=== PATIENT | male | born 1935 | race Caucasian/White ===

== ENCOUNTER 2019-05-09 16:29 | Inpatient (IN) ==
--- NOTE | 2019-05-09 17:47 | PROVIDER DOCUMENTATION ---
This chart was entered by Brittney Martinez Scribe, acting as scribe for Leticia Peacock MD. HPI-General Adult - General Source: RN/ (RN) - History of Present Illness -Gen Adult Nature of Presenting Problems: Patient is a 83 year old male who presents to the ED via EMS with weakness and lethargy. RN states EMS stated patient took Trazodone for the first time last night. Patient denies nausea, dizziness, chest pain, shortness of breath and urinary symptoms. Location of Pain/Injury: reports: none Quality of Pain: reports: none Severity: reports: mild Onset/Duration: reports: last night Timing: reports: still present Context/Activities at Onset: reports: light activity Associated Symptoms: reports: weakness, other (AMS - lethargic) Similar Symptoms Previously?: Yes Recently seen or treated by another doctor?: No <Leticia Peacock - Last Filed: 05/09/19 19:23> <Terry Murguia - Last Filed: 05/09/19 20:05> - General Chief Complaint: Weakness Stated Complaint: WEAKNESS Time Seen by Provider: 05/09/19 16:59 Allergies/Adverse Reactions: Patient Allergies Allergy/AdvReac Type Severity Reaction Status Date / Time No Known Allergies Allergy Verified 05/09/19 17:58 Home Medications: Home Medication List Medication Instructions Recorded Confirmed Last Taken Type Aspirin [Adult Aspirin] 81 mg PO DAILY 05/09/19 05/09/19 Unknown History Cholecalciferol (Vitamin D3) 1 cap PO DIRECTED 05/09/19 05/09/19 Unknown History [D3-50] Cyanocobalamin S.l. [Vitamin B-12] 1 tab SUBLINGUAL DAILY 05/09/19 05/09/19 Unknown History Dabigatran Etexilate Mesylate 150 mg PO BID 05/09/19 05/09/19 Unknown History [Pradaxa] Donepezil HCl 1 tab PO QHS 05/09/19 05/09/19 Unknown History Lisinopril 20 mg PO DAILY 05/09/19 05/09/19 Unknown History SIMVAstatin [Zocor] 40 mg PO QHS 05/09/19 05/09/19 Unknown History Review of Systems - Adult - REVIEW OF SYSTEMS - ADULT Constitutional: reports: no symptoms reported. denies: chills, fever, fatique Eyes: reports: no symptoms reported Ears, Nose, Mouth & Throat: reports: no symptoms reported Cardiovascular: reports: no symptoms reported. denies: chest pain, irregular heart rate, palpitations Respiratory: reports: no symptoms reported. denies: cough, shortness of breath, wheezing Gastrointestinal: reports: no symptoms reported. denies: abdominal pain, nausea, vomiting Genitourinary: reports: no symptoms reported. denies: dysuria, hematuria, urinary retention Musculoskeletal: reports: no symptoms reported Integumentary: reports: no symptoms reported Neurological: reports: no symptoms reported Psychiatric: reports: no symptoms reported Endocrine: reports: no symptoms reported Hematologic/Lymphatic: reports: no symptoms reported Allergic/Immunologic: reports: no symptoms reported All Other Systems: Reviewed and Negative <Leticia Peacock - Last Filed: 05/09/19 19:23> Past History - Adult - PAST MEDICAL HISTORY-ADULT Review of Records: reports: Old Records Reviewed, Social history reviewed & non- contributory. Major Childhood Illnesses: reports: denies history Cardiovascular: reports: denies history Respiratory: reports: denies history Gastrointestinal: reports: denies history Obstetrical/Gynecological: reports: denies history Genitourinary: reports: denies history Musculoskeletal: reports: denies history Neurological: reports: denies history Psychiatric: reports: denies history Endocrine/Immune: reports: denies history Other Conditions: reports: denies history - PRIOR SURGERIES/PROCEDURES Surgical/Procedure History: reports: reviewed, not pertinent - IMMUNIZATION STATUS Childhood Immunizations: See Nurse Assessment Flu Vaccine: See Nurse Assessment - FAMILY HISTORY Family History: reviewed, not pertinent - SOCIAL HISTORY Smoking: denies Substance Use: denies <Leticia Peacock - Last Filed: 05/09/19 19:23> Physical Exam-General - PHYSICAL EXAM-ADULT Initial Vital Signs Reviewed: Yes - CONSTITUTIONAL General Appearance: alert, no apparent distress, other (drowsy). negative: obtunded - HEAD, EARS, NOSE, MOUTH & THROAT HENMT: normocephalic/atraumatic, other (dry mucous membranes). negative: angioedema - RESPIRATORY Respiratory: chest non-tender, lungs clear, normal breath sounds. negative: crackles, rhonchi, wheezing - CARDIOVASCULAR Cardiovascular: normal peripheral pulses, regular rate, rhythm. negative: tachycardia - GASTROINTESTINAL (ABDOMEN) Abdominal Exam: normal bowel sounds, non tender, soft. negative: guarding, rebound - MUSCULOSKELETAL Extremity: non-tender, other (2 + pitting edema to bilateral lower extremities). negative: deformity, erythema - SKIN Integumentary: normal color, normal turgor, warm/dry. negative: cyanosis, ecchymosis, jaundice - PSYCHIATRIC Psych/Mental Status: other. negative: anxious, paranoid (oriented to time and person. disoriented to place) <Leticia Peacock - Last Filed: 05/09/19 19:23> Progress - PLAN OF CARE/RESULTS Progress/Plan/Lab Results: Vital Signs - 8 hr 05/09/19 17:05 Temperature 97.9 F Pulse Rate 69 Respiratory Rate 18 Blood Pressure 101/62 O2 Sat by Pulse Oximetry 95 Result Diagrams: 05/09/19 17:46 - CHANGE OF SHIFT REPORT (ED Provider) 1 Report Given and Care Transferred to:: Dr Murguia Time of Transfer: 19:00 Items Pending: Labs, CT/MRI Results, Physician Consult/Arrival <Leticia Peacock - Last Filed: 05/09/19 19:23> - PLAN OF CARE/RESULTS Progress/Plan/Lab Results: Vital Signs - 8 hr 05/09/19 17:05 Temperature 97.9 F Pulse Rate 69 Respiratory Rate 18 Blood Pressure 101/62 O2 Sat by Pulse Oximetry 95 Laboratory Results - last 24 hr 05/09/19 05/09/19 05/09/19 17:46 17:46 18:35 WBC 22.17 H RBC 4.76 Hgb 14.3 Hct 42.3 MCV 88.9 MCH 30.0 MCHC 33.8 RDW Std Deviation 14.3 Plt Count 109 L MPV 11.7 H Immature Gran % (Auto) 0.6 H Neut % (Auto) 86.1 H Lymph % (Auto) 7.8 L [place] % (Auto) 5.2 Eos % (Auto) 0.2 Baso % (Auto) 0.1 Immature Gran # (Auto) 0.14 H Neut # (Auto) 19.07 H Lymph # (Auto) 1.74 [place] # (Auto) 1.16 H Eos # (Auto) 0.04 Baso # (Auto) 0.02 Sodium Potassium Chloride Carbon Dioxide Anion Gap BUN Creatinine Estimated GFR/1.73 m2 BUN/Creatinine Ratio Glucose POC Glucose Calculated Osmolality Calcium Total Bilirubin AST ALT Alkaline Phosphatase Total Protein Albumin Globulin Albumin/Globulin Ratio Plasma Lactate 1.4 Urine Source CATH Urine Color ORANGE Urine Turbidity TURBID Urine pH 5.5 Ur Specific [place] 1.022 Urine Protein 100 A Ur Glucose (Stick) NEGATIVE Ur Ketones (Stick) TRACE A Urine Blood LARGE A Urine Nitrite NEGATIVE Urine Bilirubin SMALL A Urobilinogen Dipstick 3 A Urine Leukocytes LARGE A Urine WBC (Auto) TNTC A Urine RBC (Auto) TNTC A U Epithel Cells (Auto) <10 Urine Bacteria (Auto) 4+ Urine Crystals NONE SEEN Small Round Cells Not Reportable Urine Casts NONE SEEN Urine Yeast-like Cells NONE SEEN 05/09/19 05/09/19 18:50 19:03 WBC RBC Hgb Hct MCV MCH MCHC RDW Std Deviation Plt Count MPV Immature Gran % (Auto) Neut % (Auto) Lymph % (Auto) [place] % (Auto) Eos % (Auto) Baso % (Auto) Immature Gran # (Auto) Neut # (Auto) Lymph # (Auto) [place] # (Auto) Eos # (Auto) Baso # (Auto) Sodium 142 Potassium 3.8 Chloride 104 Carbon Dioxide 24 L Anion Gap 14 BUN 71 H Creatinine 2.6 H Estimated GFR/1.73 m2 24 BUN/Creatinine Ratio 27 Glucose 148 H POC Glucose 137 H Calculated Osmolality 307 Calcium 8.2 L Total Bilirubin 1.67 H AST 139 H ALT 215 H Alkaline Phosphatase 178 H Total Protein 6.1 L Albumin 2.5 L Globulin 3.6 Albumin/Globulin Ratio 0.7 Plasma Lactate Urine Source Urine Color Urine Turbidity Urine pH Ur Specific [place] Urine Protein Ur Glucose (Stick) Ur Ketones (Stick) Urine Blood Urine Nitrite Urine Bilirubin Urobilinogen Dipstick Urine Leukocytes Urine WBC (Auto) Urine RBC (Auto) U Epithel Cells (Auto) Urine Bacteria (Auto) Urine Crystals Small Round Cells Urine Casts Urine Yeast-like Cells Orders Category Date Time Status Saline Loc NOW Care 05/09/19 17:17 Active CHEST-PORTABLE [RAD] Stat Exams 05/09/19 17:[address] HEAD W/O CONTRAST [CT] Stat Exams 05/09/19 17:17 Completed BLOOD CULTURE [BLDCUL] Stat Lab 05/09/19 18:18 Received CBC WITH DIFF [HEME] Stat Lab 05/09/19 17:46 Completed COMPREHENSIVE METABOLIC PANEL [CHEM] Stat Lab 05/09/19 18:50 Completed LACTATE, PLASMA [CHEM] Stat Lab 05/09/19 17:46 Completed UA NIMS W/REFLEX CULT [URINALYSIS] Stat Lab 05/09/19 18:35 Completed URINE CULTURE [RM] Routine Lab 05/09/19 19:24 Received URINE MANUAL MICROSCOPIC [URINALYSIS] Stat Lab 05/09/19 18:35 Completed 0.9% Sodium Chloride Inj [Ns] 1,000 ml Med 05/09/19 19:55 Active IV 999 mls/hr 0.9% Sodium Chloride Inj [Ns] 50 ml Med 05/09/19 19:31 Discontinued .ROUTE As directed Piperacillin/Tazobactam [Zosyn] 4.5 gm Med 05/09/19 20:00 Active 0.9% Sodium Chloride Inj [Ns] 100 ml IV NOW Piperacillin/Tazobactam [Zosyn] 4.5 gm Med 05/09/19 19:30 Ordered 0.9% Sodium Chloride Inj [Ns] 100 ml IV Q6H Pulse Oximetry Stat Oth 05/09/19 17:17 Active Pt signed out to me by Dr. Peacock, pt has UTI and WOLF, given IVF and abx, will admit Result Diagrams: 05/09/19 17:46 05/09/19 18:50 <Terry Murguia - Last Filed: 05/09/19 20:05> Departure <Leticia Peacock - Last Filed: 05/09/19 19:23> - Departure Date of Disposition Decision: 05/09/19 Time of Disposition Decision: 20:04 Certified Medical Emergency: Emergent - Critical Care Note This patient required my direct & personal management of CC.: No <Terry Murguia - Last Filed: 05/09/19 20:05> - Departure DIAGNOSIS: WOLF (acute kidney injury) UTI (urinary tract infection) Qualifiers: Urinary tract infection type: acute cystitis Hematuria presence: without mehran turia Qualified Code(s): N30.00 - Acute cystitis without hematuria Disposition: ADMITTED INPATIENT 09 Condition: Stable Referrals and Follow-Ups: Cristian Crabtree MD [Primary Care Provider] - Attestation - Physician/ KARLEE Attestation The physician spent face to face time with patient:: Yes Advanced Practice Provider documentation review:: Supervising physician onsite and consulted in the evaluation and care of this patient. The physician did have a face to face encounter with the patient. <Leticia Peacock - Last Filed: 05/09/19 19:23> - Physician/ KARLEE Attestation Patient care was provided by Advanced Practice Provider:: No <Terry Murguia - Last Filed: 05/09/19 20:05> This chart was documented by the indicated scribe, (Brittney Martinez Scribe) and accurately reflects the services I performed and decisions made by me, Leticia Peacock MD, as attested by the provider's signature.
[2019-05-09 18:09] LABS: BASO# 0.02 X1000 (0.0-0.2); BASO% 0.1 % (0.0-0.8); EOS# 0.04 X1000 (0.0-0.7); EOS% 0.2 % (0.0-10.0); HEMATOCRIT 42.3 % (42.0-52.0); HEMOGLOBIN 14.3 g/dL (14.0-18.0); IMM GRAN# 0.14 X1000 (0.0-0.04); IMM GRAN% 0.6 % (0.0-0.5); LYMPH# 1.74 X1000 (1.2-3.4); LYMPH% 7.8 % (20.5-51.1); MCHC 33.8 g/dL (33-37); MCV 88.9 FL (81-99); MONO# 1.16 X1000 (0.11-0.59); MONO% 5.2 % (1.7-9.3); MPV 11.7 FL (7.4-10.4); NEUT# 19.07 X1000 (1.4-6.5); NEUT% 86.1 % (42.2-75.2); PLT 109 X1000 (130-400); RBC 4.76 XMIL (4.7-6.1); RDW 14.3 % (11.5-14.5); WBC 22.17 X1000 (4.8-10.8)
--- NOTE | 2019-05-09 18:29 | Diag Imaging Result Doc PS360 ---
CT HEAD W/O CONTRAST - 05/09/2019 INDICATION: AMS COMPARISON: 04/15/2019 FINDINGS: Stable mild cerebral atrophy. Stable mild periventricular white matter chronic microvascular disease. No intracranial mass or hemorrhage. The skull is intact. The sinuses are clear. IMPRESSION: No acute process. This exam was performed using automated exposure control, adjustment of mA or kV according to patient size, and/or use of iterative reconstruction technique Electronically signed by Johnny Mejia 05/09/2019 6:27 PM
--- NOTE | 2019-05-09 18:31 | Diag Imaging Result Doc PS360 ---
CHEST-PORTABLE - 05/09/2019 INDICATION: AMS COMPARISON: None FINDINGS: There are sternotomy wires and valve replacement changes. There is mild cardiomegaly. There is mild central pulmonary vascular congestion. No definite infiltrates or edema. No pleural effusion. IMPRESSION: Cardiomegaly and pulmonary vascular congestion. Electronically signed by Johnny Mejia 05/09/2019 6:29 PM
[2019-05-09 18:46] LABS: URINE SOURCE CATH
[2019-05-09 19:02] LABS: BILIRUBIN URINE SMALL (NEGATIVE); BLOOD URINE LARGE (NEGATIVE); COLOR ORANGE; GLUCOSE URINE NEGATIVE (NEGATIVE); KETONE URINE TRACE mg/dL (NEGATIVE); LEUKOCYTES URINE LARGE (NEGATIVE); NITRITE URINE NEGATIVE (NEGATIVE); PH URINE 5.5; PROTEIN URINE 100 mg/dL (NEGATIVE); SP GRAVITY URINE 1.022; TURBIDITY URINE TURBID (CLEAR); UROBILINOGEN URINE 3 mg/dL (NORMAL)
[2019-05-09 19:07] LABS: UR EPITHELIAL CELLS <10 /HPF (<10); URINE BACTERIA 4+ /HPF; URINE RBC TNTC /HPF (<10); URINE WBC TNTC /HPF (<10)
--- NOTE | 2019-05-09 19:21 | ED EKG INTERP ---
This chart was entered by Criselda Bateman Scribe, acting as scribe for Leticia Peacock MD. EKG Interpretation - EKG Time of EKG reading by physician:: 18:16 EKG Read and Signed by:: Leticia Peacock EKG Interpretation (*Must complete 3 of following elements*): Abnormal (Atrial fibrillation, Cannot rule out Inferior infarct, age undetermined. Anterior infarct, age undetermined. Abnormal ECG ( no STEMI )) Rate: 65 Rhythm: Atrial Fibrillation [place]: normal QRS: normal SD Interval: normal Attestation - Physician/ KARLEE Attestation Patient care was provided by Advanced Practice Provider:: No The physician spent face to face time with patient:: Yes Advanced Practice Provider documentation review:: Supervising physician onsite and consulted in the evaluation and care of this patient. The physician did have a face to face encounter with the patient. This chart was documented by the indicated scribe, (Criselda Bateman Scribe) and accurately reflects the services I performed and decisions made by , Leticia Peacock MD, as attested by the provider's signature.
[2019-05-09 19:23] LABS: URINE CASTS NONE SEEN; URINE CRYSTALS NONE SEEN; URINE YEAST NONE SEEN
[2019-05-09] MEDS ORDERED: ZOSYN 4.5 GM in NS 100 ML IV SCH (19:30)
[2019-05-09] MEDS ORDERED: NS 50 ML ONE (19:31)
[2019-05-09 19:37] LABS: ALB/GLOB RATIO 0.7; ALBUMIN 2.5 g/dL (3.5-5.0); CALCIUM 8.2 mg/dL (8.8-10.2); CREATININE 2.6 mg/dL (0.7-1.2); POTASSIUM 3.8 mmol/L (3.5-5.1); TOTAL BILIRUBIN 1.67 mg/dL (0.20-1.00); TOTAL PROTEIN 6.1 g/dL (6.3-8.3)
[2019-05-09] MEDS ORDERED: NS 1,000 ML IV ONE (19:55)
[2019-05-09] MEDS ORDERED: ZOSYN 4.5 GM in NS 100 ML IV ONE (20:00)
[2019-05-09] MEDS ORDERED: ZOFRAN IV PRN ×2 (21:27→22:00)
[2019-05-09] MEDS ORDERED: ARICEPT PO SCH (21:27)
[2019-05-09] MEDS ORDERED: DABIGATRAN ETEXILATE MESYLATE 150 MG PO SCH (21:27)
[2019-05-09] MEDS ORDERED: NS 1,000 ML ONE (21:37)
[2019-05-09] MEDS: ARICEPT PO SCH (22:00)
[2019-05-09] MEDS ORDERED: DABIGATRAN ETEXILATE MESYLATE 75 MG PO SCH (22:00)
[2019-05-09 22:32] LABS: INR 2.1; PROTIME 24.1 Seconds (11.0-16.0)
[2019-05-09 22:33] LABS: PTT 50.8 Seconds (22.3-41.8)
[2019-05-09] MEDS: NS 1,000 ML IV SCH (22:43)
--- NOTE | 2019-05-10 01:16 | HISTORY AND PHYSICAL ---
PRIMARY CARE PROVIDER: Dr. Cristian Crabtree at [facility]. DATE AND TIME: 05/09/2019 at 2100. CHIEF COMPLAINT: Weakness and altered mental status. The patient was brought to the ER this evening, 05/09/2019 at 1629 hours, with complaints of weakness and altered mental status. According to the ER report, the patient has been recently admitted and discharged from [facility], for which he was treated for a urinary tract infection. Also, it was reported that the patient took a trazodone last night for the 1st time as well, this was thought maybe to have been contributing to his lethargy and altered mental status. The patient is only alert and oriented to person. Unfortunately, due to his mentation, he is not able to provide really any assistance with history of present illness, past medical history, or review of systems. I did conduct a review of systems with the patient, though he either said "no" or "I don't know" to every question. I am not sure how reliable his response is at this time. Upon evaluation in the ER, head CT was performed which showed no acute intracranial abnormality. A chest x-ray was performed, which did show cardiomegaly and pulmonary vascular congestion. He does have leukocytosis with a white blood cell count of 22,170. It is unknown, at this time, whether or not he has been having fever prior to arrival. It does appear that he has an acute kidney injury with a BUN of 71, a creatinine of 2.6, and a GFR of 24. He also has elevated liver function tests, and urinalysis which was obtained via catheter, did show a urinary tract infection. While in the ER, though his mean arterial pressures are staying above 60, he does have some mild borderline hypotension noted. He did receive a 1 L normal saline bolus and has been started with antibiotic treatment of Zosyn. He will be admitted to the ICU for further treatment and evaluation. REVIEW OF SYSTEMS: Though a 14-point review of systems was conducted with the patient, the patient is altered. He is only alert and oriented to person only. He did either answer "no" or "I don't know" to my questions. All were negative except for positive findings mentioned in the above HPI. Given his current mentation I am not sure how reliable his response to review of systems is at this time. PAST MEDICAL HISTORY: This was obtained via his medical records from [facility]. 1. History of atrial fibrillation on anticoagulation with Pradaxa. 2. Coronary artery disease. 3. Vascular dementia. 4. Hypertension. 5. Chronic kidney disease. 6. TIA. 7. Mitral and aortic valve insufficiency. 8. Abdominal aortic aneurysm. 9. History of malignant neoplasm of the prostate. 10. Carotid artery disease. 11. History of intracardiac thrombosis. 12. History of aneurysm of the heart. PAST SURGICAL HISTORY: 1. Reported aortic valve replacement. 2. Elbow surgery. SOCIAL HISTORY: The patient is a former smoker, though other than this, we are not able to obtain any other information at this time due to the patient's current mentation and no family at bedside. FAMILY HISTORY: Were unable to obtain past family medical history due to the patient's current condition and mentation. ALLERGIES: Patient has no known allergies. HOME MEDICATIONS: 1. Aspirin 81 mg tablet p.o. daily. 2. Donepezil 10 mg, 1 tablet p.o. at bedtime. 3. Lisinopril 10 mg, 1 tablet p.o. daily. 4. Pradaxa 150 mg, 1 capsule p.o. b.i.d. 5. Simvastatin 40 mg tablet, 1 tablet p.o. at bedtime. 6. Vitamin D3, 50,000 units, 1 capsule once weekly as directed. 7. Vitamin B12, 2500 mcg tablet sublingual daily. 8. Trazodone 50 mg tablet by mouth once daily at bedtime. DIAGNOSTIC STUDIES: White blood cell count is 22,170, hemoglobin 14.3, hematocrit 42.3, platelet count is 109,000. PTT 24.1, INR 2.1, PTT is 50.8. Sodium 142, potassium 3.8, chloride 104, serum bicarbonate is 24, BUN 71, creatinine 2.6 with a GFR 24. Glucose 148, calcium 8.2, magnesium 2.3, total bilirubin is 1.67, AST 139, ALT 215, alkaline phosphatase is 178. CK is 1164. Plasma lactate is 1.4. Urinalysis was obtained via catheter, was positive for protein, trace ketones, large blood, small bilirubin, large leukocytes, too numerous to count white blood cells and red blood cells, and 4+ bacteria. CT of the head without contrast showed no acute process. This was per Radiology. Chest x-ray showed cardiomegaly and pulmonary vascular congestion, though there is no definite infiltrates or edema. There is no pleural effusion. There were sternotomy wires and valve replacement changes noted as well. This is per Radiology. EKG showed atrial fibrillation at a rate of 65 with a QTc of 445 msec. PHYSICAL EXAMINATION: VITAL SIGNS: Heart rate 64, respirations 18, blood pressure is 115/64, oxygen saturation is 95% per nasal cannula at 2 L. GENERAL: Mr. Salguero is a pleasant 83-year-old male. He is only alert and oriented to person, at this time. Though he is resting in the ER stretcher with his eyes closed, he does open his eyes to verbal calling of his name. He is able to follow simple commands. HEENT: Head is atraumatic, normocephalic. Pupils are equal, round, reactive to light, were 3 mm bilaterally and brisk. Oral mucosa slightly dry. Oropharynx is clear. NECK: Supple. Trachea midline. CARDIOVASCULAR: Patient has a systolic murmur noted, though no other rubs or gallops appreciated. He does have an irregularly irregular rhythm. He is showing atrial fibrillation on bedside monitor. Though, the rate is controlled in the 60s at this time. PULMONARY: The patient has symmetrical chest expansion bilaterally. Lung sounds are clear to auscultation in bilateral full adorno. ABDOMEN: Soft. Does not appear to be distended, though The patient does have a protuberant abdomen noted. He is nontender upon palpation. Bowel sounds are present in all 4 quadrants, were normoactive. EXTREMITIES: No cyanosis noted. The patient does have some trace edema noted in bilateral lower extremities from mid calf down. He is able to move all extremities, though does have generalized weakness noted. Radial pulses were 3+ bilaterally. Pedal pulses were 2+ bilaterally. INTEGUMENTARY: The patient's skin is pink, warm, and dry. NEUROLOGICAL: Patient is alert and oriented to person only. He is able to follow some simple commands. He is able to move all extremities, though does have generalized weakness noted. At this time, due to his current condition and mentation, his neurological exam is limited. ASSESSMENT AND PLAN: 1. Encephalopathy. This could be multifactorial. The patient did receive a first-time dose of trazodone last night, though this may be related to the patient's urinary tract infection. According to the patient's ER notes, it does look like that his reported baseline mentation is being alert and oriented x2. We will continue to monitor this closely. 2. Urinary tract infection. We have placed the patient on antibiotic coverage of Zosyn. This has been renally dosed. We are awaiting urine culture results. We will continue to follow. 3. Mild hypotension. May be secondary to volume depletion. The patient did receive a 1 L normal saline bolus and does have normal saline infusion at 150 mL/h. We will continue to monitor this closely and implement pressors if necessary. 4. Acute kidney injury. The patient, from what I understand, does have underlying chronic kidney disease, though the patient on April 28, did have a creatinine of 0.9, which is now 2.6. This could be multifactorial related to his urinary tract infections, some mild hypotension, volume depletion, and he does take lisinopril as well. We will avoid nephrotoxic medications, renally dose medicines as necessary, providing some IV hydration. We will continue to follow. 5. Transaminitis. This could be multifactorial as well, it could be related to infection as well as some mild hypotension. We will continue to monitor this closely. 6. History of atrial fibrillation. The patient's rate is controlled in the 60s at this time, though he has had a couple dips into the 50s. Looking at his medication list, he does not take any regularly prescribed medicines for heart rate control. He will be on continuous cardiac telemetry. We will monitor his heart rate. 7. Deep venous thrombosis prophylaxis. We will place some sequential compression devises. The patient normally does take Pradaxa 150 mg p.o. b.i.d. for his history of atrial fibrillation, though at this time, I have held this due to his INR was elevated. We will repeat this in the morning to see if we are able to restart this medication, but if it does, it will likely need to be renally dosed based off his creatinine clearance which, at this time, would be 75 mg p.o. b.i.d. He has been placed in ICU for close monitoring. We will do strict intake and output. We have implemented aspiration precautions, incentive spirometry. He will be NPO, at this time, except for medications and sips of water, as long as the patient is arousable and can sit up. We will repeat a CBC, CMP, lactate, PT, INR, and CK in the morning. Further orders and recommendations pending hospital course, diagnostic studies, and physician evaluation. Dictated by PAULO Jenkins for Baron Lees MD Agree with the above. the following is my own face to face assessment. Patient sent [facility] from senior living for somnolence. started on trazodone last night. in the ED, found to have sepsis, likely related to UTI and WOLF, likely dehydration related. he was arousable with difficulty but markedly somnolent at the time of my exam. when he did arouse his speech was clear and largely coherent, but he wouldn't stay awake long enough to give any useful history. treating empirically with vanc and zosyn but will likely be able to drop the vanc if his repeat cxr is still clear. will get echo because of 4/6 LUSB murmur noted on exam. lungs CTAB. abdomen s/nt/nd. preliminary blood culture is gram negative rods. urine culture pending. [facility]
[2019-05-10] MEDS ORDERED: OFIRMEV 1000 MG/ISOTONIC SOLN 1,000 MG/100 ML BOTTLE IV ONE (01:21)
[2019-05-10] MEDS ORDERED: TYLENOL PR PRN (01:32)
[2019-05-10] MEDS ORDERED: TYLENOL ONE (01:37)
[2019-05-10] MEDS ORDERED: TYLENOL PR ONE (02:39)
[2019-05-10] MEDS ORDERED: MOTRIN LIQUID PO ONE (02:39)
[2019-05-10] MEDS ORDERED: VANCOMYCIN IV PER PHARMACY MISC SCH (03:00)
[2019-05-10] MEDS ORDERED: VANCOMYCIN 1 GM/NS 1 GM/250 ML IVPB IV ONE (04:00)
[2019-05-10] MEDS: ZOSYN 2.25 GM in NS 50 ML IV SCH ×4 (05:02→20:54)
[2019-05-10 05:49] LABS: HEMOGLOBIN A1C 5.2 % (4.8-6.0)
[2019-05-10] MEDS ORDERED: VANCOMYCIN 2,500 MG in NS 500 ML IV ONE (06:00)
[2019-05-10 06:01] LABS: BASO# 0.01 X1000 (0.0-0.2); BASO% 0.1 % (0.0-0.8); HEMATOCRIT 39.7 % (42.0-52.0); HEMOGLOBIN 13.3 g/dL (14.0-18.0); IMM GRAN# 0.28 X1000 (0.0-0.04); IMM GRAN% 1.9 % (0.0-0.5); LYMPH# 0.85 X1000 (1.2-3.4); LYMPH% 5.6 % (20.5-51.1); MCH 29.8 PG (27-31); MCHC 33.5 g/dL (33-37); MCV 88.8 FL (81-99); MONO# 0.97 X1000 (0.11-0.59); MONO% 6.4 % (1.7-9.3); MPV 11.4 FL (7.4-10.4); NEUT# 13.01 X1000 (1.4-6.5); PLT 99 X1000 (130-400); RBC 4.47 XMIL (4.7-6.1); RDW 14.3 % (11.5-14.5); WBC 15.12 X1000 (4.8-10.8)
[2019-05-10 06:02] LABS: ALB/GLOB RATIO 0.6; ALBUMIN 2.1 g/dL (3.5-5.0); CALCIUM 7.7 mg/dL (8.8-10.2); CREATININE 2.1 mg/dL (0.7-1.2); POTASSIUM 2.9 mmol/L (3.5-5.1); TOTAL BILIRUBIN 1.51 mg/dL (0.20-1.00); TOTAL PROTEIN 5.4 g/dL (6.3-8.3)
[2019-05-10] MEDS: NS 1,000 ML IV SCH ×3 (06:07→20:03)
[2019-05-10 06:51] LABS: BANDS 2 % (0-1); LYMPHS 4 % (21-51); MONO 6 % (1-9); SEGS 84 % (42-75)
[2019-05-10 07:13] LABS: INR 1.96; PROTIME 22.8 Seconds (11.0-16.0)
--- NOTE | 2019-05-10 07:24 | Diag Imaging Result Doc PS360 ---
CHEST-PORTABLE - 05/10/2019 INDICATION: dyspnea COMPARISON: 05/09/2019 FINDINGS: Stable cardiomegaly and significant pulmonary vascular congestion. No infiltrates or definite edema. IMPRESSION: No change from prior. Electronically signed by Johnny Mejia 05/10/2019 7:22 AM
--- NOTE | 2019-05-10 08:52 | EKG Report ---
Test Performed on : 05/09/2019 6:16:35 PM Test Reason : ED. No order in [place] Blood Pressure : / mmHG Vent. Rate : 065 BPM Atrial Rate : 059 BPM P-R Int : 000 ms QRS Dur : 094 ms QT Int : 428 ms P-R-T Axes : 000 051 066 degrees QTc Int : 445 ms Atrial fibrillation. Cannot rule out Inferior infarct , age undetermined Anterior infarct , age undetermined Abnormal ECG No previous ECGs available Unconfirmed Result
[2019-05-10] MEDS: ASPIRIN EC PO SCH (09:15)
[2019-05-10] MEDS ORDERED: CALMOSEPTINE OINTMENT TOP PRN (09:33)
[2019-05-10] MEDS ORDERED: LEVOPHED 8 MG in D5 1/2 NS 250 ML IV SCH (10:00)
--- NOTE | 2019-05-10 10:28 | PROGRESS NOTE ---
DATE: 05/10/2019 SUBJECTIVE: Mr. Salguero got admitted yesterday from the ER. Per the ER report, Mr. Salguero did complain of some weakness and lethargy. He was brought in by EMS, and EMS stated that he has taken the first dose of trazodone, which appears to have been his first time taking that, and since then, he just became completely altered and confused. Upon presenting to the emergency department, he was found to be hypotensive with a blood pressure of 97/58, but that dropped to 81/52 sometimes during the ER stay. He also had a temperature of 102.9 degrees. At one point, it was 103.5, and his pulse also went up at some point. Mr. Salguero was subsequently admitted to the critical care unit for sepsis. This morning, he refers to be doing okay. He is still fairly confused. He does not know how he came to the hospital. He does not know who made a call to EMS. He still does not know where he is, but he said he was feeling okay. His blood pressures have been trending a little low this morning with a systolic blood pressures below 90. OBJECTIVE: Current Vital Signs: Blood pressure is 100/56, pulse is 57, respirations 17, temperature is down to 98.2, the patient is saturating 100% on room air. General: Mr. Salguero is an 83-year-old, elderly, gentleman. He is in bed. He does not seem to be in any distress. HEENT: Mucosa is pink and moist. Anicteric. Acyanotic. Neck: Supple. No JVD. Chest: Air entry is bilaterally reduced. There are no crepitations, no rhonchi. Cardiovascular: Regular rate and rhythm. There is a pronounced P2 sound and a 2/6 holosystolic murmur in the left pulmonic area. There is also an old sternotomy scar noted. GI: Abdomen is soft, nontender. Bowel sounds are present. Inguinal region seems to be unremarkable. : There is no Penny catheter at this point. Extremities: No pedal edema. DIGITAL ART DIRECTOR: The patient is awake, alert. He is oriented to person, but disoriented to place and time. He is able to move all extremities upon command. LABORATORY DATA: WBC is down to 15.15, hemoglobin is 13.3, platelet count is 99,000. The patient has 2% of bands on the peripheral smear. He has 84% of neutrophils. AST and ALT are also elevated. Total bilirubin is 1.53. So far, blood culture is growing gram-negative barbie, 2/. ASSESSMENT: 1. Septic shock on presentation. The patient did not need any pressors initially. He seems to have responded well with boluses of IV fluids. He is still on intravenous antibiotics. The blood culture is growing gram-negative rods, so I have discontinue the vancomycin, and will continue with the Zosyn at renal dose. May need pressors later BP are marginal now. 2. Altered mental status on presentation. The CT scan was unremarkable. We think this is all related to infectious encephalopathy versus drug induced. Will continue addressing the underlying issues. 3. Gram-negative barbie bacteremia, 2/2. Presumably, this is coming from the urine. Urinalysis was quite pathological. Mr. Salguero himself is not giving a very consistent history. Will continue the current antimicrobial coverage until we get any further history from him. 4. Acute kidney injury. 5. Transaminitis, presumably from ischemic liver. 6. History of atrial fibrillation. Currently rate controlled. 7. Suspected urinary tract infection as the source of the sepsis picture. 8. History of coronary artery disease, status post coronary artery bypass graft. In general, Mr. Salguero continues to be remarkably sick. Blood pressures are now trending low. We are going to put him on pressors. Will continue with the antimicrobial coverage. I have discontinued the vancomycin since we know the pathogen is a gram-negative barbie. The patient's plasma lactate on admission was 1.4; repeat this morning is 1.5. CRITICAL TIME SPENT: 45 minutes. cc: Selwyn Li MD [facility]
[2019-05-10 12:05] LABS: URINE SOURCE CATH
[2019-05-10 12:15] LABS: BILIRUBIN URINE NEGATIVE (NEGATIVE); BLOOD URINE LARGE (NEGATIVE); COLOR ORANGE; GLUCOSE URINE NEGATIVE (NEGATIVE); KETONE URINE NEGATIVE (NEGATIVE); LEUKOCYTES URINE LARGE (NEGATIVE); NITRITE URINE NEGATIVE (NEGATIVE); PROTEIN URINE 70 mg/dL (NEGATIVE); SP GRAVITY URINE 1.022; TURBIDITY URINE TURBID (CLEAR); UROBILINOGEN URINE NORMAL (NORMAL)
[2019-05-10 12:16] LABS: UR EPITHELIAL CELLS <10 /HPF (<10); URINE BACTERIA NEGATIVE /HPF; URINE RBC TNTC /HPF (<10); URINE WBC TNTC /HPF (<10)
[2019-05-10 12:20] LABS: URINE CASTS NONE SEEN; URINE CRYSTALS NONE SEEN; URINE SMALL ROUND CELLS RENAL PRESENT; URINE YEAST NONE SEEN
--- NOTE | 2019-05-10 18:03 | ECHO REPORT ---
ORDER DATE: 05/10/2019 INTERPRETING PHYSICIAN: Dr. Block CLINICAL INDICATIONS: Patient with atrial fibrillation, status post aortic valve replacement. COMMENT: The study was technically difficult. The patient is obese and Optison was added to visualize the endocardium. M-MODE MEASUREMENTS: Left ventricle end diastole: 4.9 cm. Left ventricle end systole: 3.2 cm. Posterior wall: 1.0 cm. Interventricular septum: 1.0 cm. Left atrium: 4.7 cm. Aortic diameter: 3.2 cm. SUMMARY OF 2-DIMENSIONAL IMAGIN. The left ventricular function is generally preserved. Ejection fraction is probably in the order of 55%. There is some abnormality of the interventricular septum, probably related to post surgical changes. 2. Right ventricle is mildly enlarged. 3. There is borderline concentric LVH. 4. The aortic valve is a tissue prosthetic valve. It opens normally. Maximum gradient across the valve is 21 mmHg. Mean gradient is 13 mmHg. That would be consistent with normal function of the valve. There is mild degree of aortic regurgitation. 5. The mitral valve shows some calcification of the annulus. Color flow mapping shows mild degree of regurgitation. 6. Pulsed wave Doppler of mitral inflow shows a single filling wave. 7. The patient is in atrial fibrillation. Diastolic function cannot be evaluated in this case. 8. The tricuspid valve shows mild degree of regurgitation. 9. Pulmonary pressure is estimated at 45 mmHg. The pulmonic valve is unremarkable. 10.The left atrium is significantly enlarged. The right atrium is also significantly enlarged. 11.There is no pericardial effusion, mass, and no thrombus. CONCLUSIONS: In summary, this study shows: 1. Generally well preserved left ventricular systolic function. Ejection fraction of 55%. Optison was added to visualize endocardium. 2. Significantly enlarged left atrium. 3. Enlargement of the right-sided chamber. 4. Mild degree of mitral, tricuspid, and pulmonic regurgitation. 5. Normally functioning bioprosthetic aortic valve. Mild degree of regurgitation was noted. cc: Dick Block MD
[2019-05-10] MEDS: ARICEPT PO SCH (20:54)
--- NOTE | 2019-05-10 21:10 | Diag Imaging Result Doc PS360 ---
US RENAL 2 (RETROPER) COMPLETE - 05/10/2019 INDICATION: krystal/arf TECHNIQUE: COMPARISON: None FINDINGS: The kidneys and urinary bladder are normal. No hydronephrosis or mass. The right kidney measures 14.3 x 7.2 x 7.4 cm. The left kidney measures 13.7 x 5.6 x 7.1 cm. IMPRESSION: Negative exam. Electronically signed by Johnny Mejia 05/10/2019 9:08 PM
[2019-05-11] MEDS: NS 1,000 ML IV SCH ×2 (02:11→03:44)
[2019-05-11] MEDS: ZOSYN 2.25 GM in NS 50 ML IV SCH ×2 (03:43→08:30)
[2019-05-11 06:29] LABS: BASO# 0.01 X1000 (0.0-0.2); BASO% 0.1 % (0.0-0.8); EOS# 0.01 X1000 (0.0-0.7); EOS% 0.1 % (0.0-10.0); HEMATOCRIT 43.6 % (42.0-52.0); HEMOGLOBIN 14.4 g/dL (14.0-18.0); IMM GRAN# 0.05 X1000 (0.0-0.04); IMM GRAN% 0.4 % (0.0-0.5); LYMPH# 1.46 X1000 (1.2-3.4); LYMPH% 10.4 % (20.5-51.1); MCH 29.7 PG (27-31); MCV 89.9 FL (81-99); MONO# 0.98 X1000 (0.11-0.59); MPV 11.9 FL (7.4-10.4); NEUT# 11.53 X1000 (1.4-6.5); PLT 87 X1000 (130-400); RBC 4.85 XMIL (4.7-6.1); RDW 14.6 % (11.5-14.5); WBC 14.04 X1000 (4.8-10.8)
[2019-05-11 06:36] LABS: ALBUMIN 1.9 g/dL (3.5-5.0); CALCIUM 7.4 mg/dL (8.8-10.2); CREATININE 1.6 mg/dL (0.7-1.2); PHOSPHORUS 2.9 mg/dL (2.7-4.5)
[2019-05-11] MEDS: ASPIRIN EC PO SCH (08:17)
[2019-05-11] MEDS: D5 1/2 NS 1,000 ML IV SCH ×2 (09:00→23:45)
[2019-05-11] MEDS: INVANZ 1 GM/NS 1 GM/50 ML IVPB IV SCH (09:55)
--- NOTE | 2019-05-11 12:18 | PROGRESS NOTE ---
DATE: 05/11/2019 SUBJECTIVE: This morning, Mr. Salguero refers to be feeling a lot better. He is more conversational today than yesterday. However, he remains fairly confused. OBJECTIVE: Vital Signs: Blood pressure is 158/94, pulse of 65, respirations are 17, temperature is 97.8 degrees. General Examination: Mr. Salguero is an 83-year-old, elderly, male. He is in bed. No distress. HEENT: Mucosa is pink and moist. Anicteric. Acyanotic. Neck: Supple. Chest: Clear to auscultation. No crepitations. No rhonchi. Cardiovascular: Regular rate and rhythm. There is a pronounced P2 and a 2/6 holosystolic murmur in the left base. There is an old sternotomy scar on the anterior chest wall. GI: Abdomen is soft, nontender. Bowel sounds present. Extremities: No pedal edema. EXTRUSION PRESS ADJUSTER: The patient is awake, alert, conversational, oriented to person but disoriented to place and time. The patient follows basic commands, however. Laboratory Data: WBC is down to 14.04, hemoglobin is 14.4, platelet count of 87,000. Chemistry is also reviewed. Sodium is 146, chloride is 114, creatinine is down to 1.6. The patient's microbiology data shows blood culture continues to be gram-negative barbie. The urine culture has grown Klebsiella pneumoniae which is ESBL. We suspect this is the same pathogen in the blood, so we have changed the antibiotics to carbapenem. ASSESSMENT: 1. Altered mental status secondary to infectious encephalopathy with possibly baseline dementia. 2. Septic shock on presentation. The patient responded well to only fluid resuscitation. No pressor was needed. 3. Gram-negative barbie bacteremia. 4. Klebsiella extended-spectrum B-lactamase urinary tract infection. Renal ultrasound was unremarkable for any obstructive uropathy. We have changed the antimicrobial coverage to ertapenem. 5. Acute kidney injury. Creatinine continues to be improving. The patient has adequate urine output. 6. Transaminitis, presumably from shock liver. 7. History of atrial fibrillation, currently rate controlled. 8. History of coronary artery disease, status post coronary artery bypass graft. Patient is currently asymptomatic. 9. Mild rhabdomyolysis, improving with fluids. 10. Mild electrolyte abnormality (hypernatremia and hyperchloremia). We have changed the current intravenous fluids to D5 half-normal saline. PLAN: In general, I think Mr. Salguero is doing well. I am still waiting to talk to a family member. I have not seen any at the bedside. Mr. Salguero seems to be more alert today. However, he remains pleasantly confused. At one point, he thought he was in [place] and that he lived with his parents. We have switched his antibiotics to carbapenem because of the ESBL and we have also made changes to his IV fluids. This morning, his blood pressures are slightly elevated so we are going to start him back on antihypertensive medications. Patient was on lisinopril. We will withhold that and put him on amlodipine. cc: Selwyn Li MD
[2019-05-11] MEDS: ARICEPT PO SCH (20:28)
[2019-05-12 05:18] LABS: BASO# 0.05 X1000 (0.0-0.2); BASO% 0.5 % (0.0-0.8); EOS# 0.02 X1000 (0.0-0.7); EOS% 0.2 % (0.0-10.0); HEMATOCRIT 43.3 % (42.0-52.0); HEMOGLOBIN 14.4 g/dL (14.0-18.0); IMM GRAN# 0.04 X1000 (0.0-0.04); IMM GRAN% 0.4 % (0.0-0.5); LYMPH# 1.45 X1000 (1.2-3.4); LYMPH% 13.1 % (20.5-51.1); MCH 30.3 PG (27-31); MCHC 33.3 g/dL (33-37); MCV 91.2 FL (81-99); MONO# 0.96 X1000 (0.11-0.59); MONO% 8.7 % (1.7-9.3); MPV 12.2 FL (7.4-10.4); NEUT# 8.54 X1000 (1.4-6.5); NEUT% 77.1 % (42.2-75.2); PLT 82 X1000 (130-400); RBC 4.75 XMIL (4.7-6.1); RDW 14.9 % (11.5-14.5); WBC 11.06 X1000 (4.8-10.8)
[2019-05-12] MEDS ORDERED: VANCOMYCIN 2,000 MG in NS 500 ML IV SCH (06:00)
[2019-05-12 06:02] LABS: ALB/GLOB RATIO 0.5; ALBUMIN 1.9 g/dL (3.5-5.0); CALCIUM 7.8 mg/dL (8.8-10.2); CREATININE 1.2 mg/dL (0.7-1.2); POTASSIUM 3.8 mmol/L (3.5-5.1); TOTAL BILIRUBIN 1.16 mg/dL (0.20-1.00); TOTAL PROTEIN 5.4 g/dL (6.3-8.3)
[2019-05-12] MEDS: D5W 1,000 ML IV SCH ×2 (08:56→17:16)
[2019-05-12] MEDS: NORVASC PO SCH ×2 (08:57→20:33)
[2019-05-12] MEDS: ASPIRIN EC PO SCH (08:57)
[2019-05-12] MEDS: BLISTEX MEDICATED BERRY LIP BALM TOP PRN ×2 (08:57→13:31)
[2019-05-12] MEDS: INVANZ 1 GM/NS 1 GM/50 ML IVPB IV SCH (11:06)
--- NOTE | 2019-05-12 11:18 | PROGRESS NOTE ---
DATE: 05/12/2019 SUBJECTIVE: This morning, Mr. Salguero refers to be doing fairly okay. No new complaints. OBJECTIVE: Vital Signs: Blood pressure is 157/89, pulse of 57, respirations 18, temperature 98.4 degrees. General: Mr. Salguero is an 83-year-old, elderly, male. He is in bed, not seemingly distressed. HEENT: Mucosa is pink and moist. Anicteric. Acyanotic. Neck: Supple. Chest: Good air entry bilaterally. There were no crepitations, no rhonchi. Cardiovascular: Regular rate and rhythm. There is a pronounced P2 and a 2/6 holosystolic murmur in the left base. There is an old sternotomy scar on the anterior chest wall. GI: Abdomen is soft. Bowel sounds present. Extremities: No pedal edema. HAND PICKER: The patient is awake, alert, follows basic commands, but he continues to be very disoriented to place and time. LABORATORY DATA: WBC is down to 11.06, hemoglobin is 14.4, platelet count 82,000. Chemistry is also reviewed. Sodium is up to 150, but creatinine has normalized. ALT and AST are all trending down. Creatine kinase has also normalized. ASSESSMENT: 1. Altered mental status on presentation secondary to infectious encephalopathy with baseline dementia. 2. Septic shock on presentation. The patient responded well to fluid resuscitation. No pressor needed. 3. Klebsiella pneumoniae extended spectrum beta-lactamase bacteremia originating from a urinary tract infection. The patient has been started on ertapenem. Infectious Disease has also been consulted. 4. Acute kidney injury, resolved. 5. Transaminitis, presumably from shock liver, improved. 6. History of atrial fibrillation, currently rate controlled. 7. Coronary artery disease, status post coronary artery bypass graft. The patient is currently asymptomatic. 8. Mild rhabdomyolysis, improved. 9. Electrolyte abnormality with hypernatremia. Fluids have been changed. 10. Advanced dementia. In general, today Mr. Salguero is fairly stable. We have consulted Infectious Disease because of the extended spectrum beta-lactamase in the blood and in the urine. He is currently on ertapenem. We will repeat a blood culture tomorrow, and follow it accordingly to have a negative culture. Mr. Salguero also has hypernatremia, and we have changed his current fluids to just D5. Will repeat his labs in the morning. Will get him transferred to the medical floor. Will get Physical Therapy to start working with him. I spoke with the daughter yesterday, who told me that Mr. Salguero has a remarkable advanced dementia, and because of that, he is in [facility] long-term since the and the family can no longer take care of him at home. cc: Selwyn Li MD
--- NOTE | 2019-05-12 12:52 | INFECTIOUS DISEASE CONSULT REP ---
DATE: 05/12/2019 CONCLUSION: The patient has an extended spectrum beta lactamase producing Klebsiella urinary tract infection and bacteremia. The patient also has oral candidiasis. RECOMMENDATIONS: I suggest treating the patient for 6 weeks with ertapenem in case his aortic valve and/or his aneurysm became infected hematogenously. I suggest using nystatin suspension to paint his oral cavity in order to treat the oral cavity candidiasis. The patient is not capable of doing swish and swallow with nystatin. PRESENT ILLNESS: The patient is unable provide a history. The information I obtained was from the computer. The patient was came to the emergency room with weakness and altered mental status. He had been discharged from [facility] recently after being treated for urinary tract infection. [place] [address], hemoglobin 14.4, and platelet count 82,000. Creatinine is 1.2. GFR is 58. Liver function studies are elevated. Blood and urine cultures are growing an extended spectrum beta lactamase producing Klebsiella. Renal ultrasound is normal. Echocardiogram did not see any valvular vegetations. REVIEW OF SYSTEMS: Unable to be obtained from the patient. PAST MEDICAL HISTORY: 1. Atrial fibrillation. 2. Coronary artery disease. 3. Vascular dementia. 4. Hypertension. 5. End-stage renal disease. 6. Transient ischemic attack. 7. Mitral and aortic valve insufficiency. 8. Abdominal aortic aneurysm. 9. Malignant neoplasm of the prostate. 10. Carotid artery disease. 11. Intracardiac thrombosis. 12. Aneurysm of the heart. 13. Hyperlipidemia. PAST SURGICAL HISTORY: The patient has had an aortic valve replacement and elbow surgery. SOCIAL HISTORY: The patient is a former smoker. FAMILY HISTORY: Unable to be obtained. ALLERGIES: The patient has no known allergies. HOME MEDICATIONS: 1. Aspirin. 2. Donepezil. 3. Lisinopril. 4. Pradaxa. 5. Simvastatin. 6. Vitamins. 7. Trazodone. PHYSICAL EXAMINATION: Vital SIgns: Temperature is 98.4 degrees, pulse 49, respirations 18, blood pressure is 157/89. General: This is a fairly healthy-appearing, elderly male. He is in no acute distress. Head/eyes/ears/nose/throat: He appeared to be able to hear my spoken words and see objects. There is no drainage from his nose or ears. I looked in the patient's mouth and he has a white coating on his tongue which I think is due to oral candidiasis. Neck: No meningismus. Lungs: Clear to auscultation. Cardiovascular: Heart rate is regular with a systolic murmur. Abdomen: Soft and not tender. Neurologic: The patient is arousable. His eyes were closed, but he did open them when I asked him to. He did move his extremities when I asked him to. There was no tremor. Integument: No rash. Thank you for the consult. cc: Sam Aguirre MD [facility]
[2019-05-12] MEDS: MYCOSTATIN SUSP PO SCH ×3 (13:41→20:32)
[2019-05-12] MEDS: LIPITOR PO SCH (20:33)
[2019-05-12] MEDS: ARICEPT PO SCH (20:33)
[2019-05-13] MEDS: D5W 1,000 ML IV SCH ×2 (03:40→17:46)
[2019-05-13] MEDS: NORVASC PO SCH ×2 (10:05→22:40)
[2019-05-13] MEDS: ASPIRIN EC PO SCH (10:05)
[2019-05-13] MEDS: MYCOSTATIN SUSP PO SCH ×5 (10:05→22:40)
[2019-05-13] MEDS: INVANZ 1 GM/NS 1 GM/50 ML IVPB IV SCH (11:04)
[2019-05-13 11:20] LABS: BASO# 0.02 X1000 (0.0-0.2); BASO% 0.1 % (0.0-0.8); EOS# 0.07 X1000 (0.0-0.7); EOS% 0.5 % (0.0-10.0); HEMATOCRIT 43.6 % (42.0-52.0); HEMOGLOBIN 14.4 g/dL (14.0-18.0); IMM GRAN# 0.06 X1000 (0.0-0.04); IMM GRAN% 0.4 % (0.0-0.5); LYMPH# 1.84 X1000 (1.2-3.4); LYMPH% 13.3 % (20.5-51.1); MCH 29.4 PG (27-31); MONO# 1.09 X1000 (0.11-0.59); MONO% 7.9 % (1.7-9.3); MPV 11.2 FL (7.4-10.4); NEUT# 10.71 X1000 (1.4-6.5); NEUT% 77.8 % (42.2-75.2); PLT 100 X1000 (130-400); RDW 14.5 % (11.5-14.5); WBC 13.79 X1000 (4.8-10.8)
[2019-05-13 11:29] LABS: AGAP 10; CHLORIDE 108 mmol/L (98-107); POTASSIUM 3.3 mmol/L (3.5-5.1); SODIUM 144 mmol/L (136-145); TCO2 26 mmol/L (25-35)
[2019-05-13 11:30] LABS: BUN 23 mg/dL (8-22); CALCIUM 7.3 mg/dL (8.8-10.2); COSMO 292; CREATININE 1.1 mg/dL (0.7-1.2); ESTIMATED GFR > 60; GLUCOSE 134 mg/dL (70-104)
[2019-05-13 11:42] LABS: LYMPHS 8 % (21-51); MONO 4 % (1-9); SEGS 87 % (42-75)
[2019-05-13] MEDS ORDERED: KLOR-CON PO ONE (11:52)
--- NOTE | 2019-05-13 13:01 | PROGRESS NOTE ---
DATE: 05/13/2019 SUBJECTIVE: The patient has no major complaints. He is still kind of drowsy though, and I am not quite sure why he is so drowsy. He is not really on any medications that would cause that. OBJECTIVE: Vital Signs: Blood pressure is 130/86, heart rate 62, respiratory rate 20, temperature 98.4 degrees, saturating 96% on room air. Cardiovascular: Regular rate and rhythm. Pulmonary: Bilateral breath sounds. Clear to auscultation. GI: Soft, nontender, nondistended. Bowel sounds are positive. LABORATORY DATA: White count 13, hemoglobin and hematocrit 14 and 43, platelets of 100,000. Potassium 3.3, BUN and creatinine 23 and 1.1. PROBLEM LIST: 1. Extended spectrum beta-lactamase Klebsiella urinary tract infection with positive blood cultures. He has been on Invanz since 05/11/2019, so that is 3 days, but day 1 will be after negative blood cultures, which I think they were ordered today. If not, will go ahead and order them. We need those before they put in a peripherally-inserted central catheter line. 2. He will need 6 weeks of intravenous antibiotics because he has a prosthetic aortic valve. This is per Dr. Aguirre. 3. Acute kidney injury. That is resolving. 4. Atrial fibrillation. He is rate controlled on his current medications. 5. Advanced dementia. We will continue to monitor. He is at [facility], but he is in the Dementia Unit, and the Dementia Unit will not be able to take him with his extended spectrum beta-lactamase and his peripherally-inserted central catheter line, so we will have to look at alternative treatment options for him with his intravenous antibiotics. 6. Disposition. Pending clinical status. cc: David Hannah MD
[2019-05-13] MEDS ORDERED: ZOFRAN IV PRN (13:21)
[2019-05-13] MEDS ORDERED: BLISTEX MEDICATED BERRY LIP BALM TOP PRN (13:22)
[2019-05-13] MEDS ORDERED: CALMOSEPTINE OINTMENT TOP PRN (13:22)
[2019-05-13] MEDS: ARICEPT PO SCH (22:40)
[2019-05-13] MEDS: LIPITOR PO SCH (22:40)
[2019-05-14 07:16] LABS: AGAP 8; BUN 22 mg/dL (8-22); CALCIUM 7.5 mg/dL (8.8-10.2); CHLORIDE 110 mmol/L (98-107); COSMO 294; CREATININE 1.1 mg/dL (0.7-1.2); ESTIMATED GFR > 60; GLUCOSE 107 mg/dL (70-104); POTASSIUM 3.5 mmol/L (3.5-5.1); SODIUM 146 mmol/L (136-145); TCO2 28 mmol/L (25-35)
[2019-05-14 07:18] LABS: BASO# 0.02 X1000 (0.0-0.2); BASO% 0.1 % (0.0-0.8); EOS# 0.22 X1000 (0.0-0.7); EOS% 1.3 % (0.0-10.0); HEMATOCRIT 44.7 % (42.0-52.0); HEMOGLOBIN 14.1 g/dL (14.0-18.0); IMM GRAN# 0.09 X1000 (0.0-0.04); IMM GRAN% 0.5 % (0.0-0.5); LYMPH# 2.59 X1000 (1.2-3.4); LYMPH% 15.6 % (20.5-51.1); MCH 28.5 PG (27-31); MCHC 31.5 g/dL (33-37); MCV 90.5 FL (81-99); MONO# 1.27 X1000 (0.11-0.59); MONO% 7.7 % (1.7-9.3); MPV 11.7 FL (7.4-10.4); NEUT# 12.38 X1000 (1.4-6.5); NEUT% 74.8 % (42.2-75.2); PLT 119 X1000 (130-400); RBC 4.94 XMIL (4.7-6.1); RDW 14.6 % (11.5-14.5); WBC 16.57 X1000 (4.8-10.8)
[2019-05-14] MEDS: NORVASC PO SCH ×2 (09:07→21:53)
[2019-05-14] MEDS: MYCOSTATIN SUSP PO SCH ×4 (09:07→21:53)
[2019-05-14] MEDS: ASPIRIN EC PO SCH (09:07)
[2019-05-14 09:25] LABS: ANISOCYTOSIS 1+; LYMPHS 14 % (21-51); MONO 6 % (1-9); SEGS 80 % (42-75)
[2019-05-14] MEDS: INVANZ 1 GM/NS 1 GM/50 ML IVPB IV SCH (12:23)
--- NOTE | 2019-05-14 19:42 | PROGRESS NOTE ---
DATE: 05/14/2019 SUBJECTIVE: Patient has no major complaints. OBJECTIVE: Blood pressure 115/57, heart rate of 70, respiratory rate 18, temperature 98.4 degrees, 98% on room air.Cardiovascular: Regular rate and rhythm. Pulmonary: Bilateral breath sounds. Clear to auscultation. GI: Soft, nontender, nondistended. Bowel sounds are positive. FINDINGS: He seems pretty with it today, but apparently left to his own accord. He gets very agitated and wanders which is making his disposition unfortunately very difficult, but really not much we can do and we are trying to work out some wear to go with him. PROBLEM LIST: 1. Extended spectrum beta-lactamases urinary tract infection with a Klebsiella pneumonia. He is on Invanz. His white count is 16,000, which is actually higher than usual. In any case, we will continue antibiotics and follow. Per Dr. Aguirre he needs 6 weeks, but we are not going to be able to do that. He has no exterminator helper assisted care. retirement will not take him back with a PICC line because he is in a monitoring unit. 2. Acute kidney injury is resolving. 3. Atrial fibrillation is stable. 4. Dementia. We will continue medications and follow. DISPOSITION: Pending his clinical status. cc: David Hannah MD
[2019-05-14] MEDS: LIPITOR PO SCH (21:53)
[2019-05-14] MEDS: ARICEPT PO SCH (21:53)
[2019-05-15 09:06] LABS: INR 1.12
[2019-05-15] MEDS ORDERED: NS 250 ML ONE (09:29)
[2019-05-15] MEDS: ASPIRIN EC PO SCH (09:48)
[2019-05-15] MEDS: NORVASC PO SCH ×2 (09:48→20:43)
[2019-05-15] MEDS: MYCOSTATIN SUSP PO SCH ×4 (09:49→20:42)
[2019-05-15] MEDS: INVANZ 1 GM/NS 1 GM/50 ML IVPB IV SCH (09:49)
--- NOTE | 2019-05-15 11:29 | Diag Imaging Result Doc PS360 ---
EXAM: CHEST-PORTABLE HISTORY: Verify PICC placement TECHNIQUE: Single view of the chest was performed portably. COMPARISON: 05/10/2019 FINDINGS: There is cardiomegaly with median sternotomy wires.. The pulmonary vasculature is not congested. There may be trace effusions. No focal consolidation. A left-sided PICC catheter has been placed. The tip is difficult to visualize but is believed to be within the upper to mid SVC. IMPRESSION: PICC catheter tip believed to be within the upper to mid SVC. Cardiomegaly. Possible trace effusions. Electronically signed by Karie Walter 05/15/2019 11:26 AM
[2019-05-15 13:32] LABS: BASO# 0.02 X1000 (0.0-0.2); BASO% 0.1 % (0.0-0.8); EOS# 0.21 X1000 (0.0-0.7); EOS% 1.4 % (0.0-10.0); HEMATOCRIT 42.5 % (42.0-52.0); HEMOGLOBIN 13.6 g/dL (14.0-18.0); IMM GRAN# 0.07 X1000 (0.0-0.04); IMM GRAN% 0.5 % (0.0-0.5); LYMPH# 2.41 X1000 (1.2-3.4); LYMPH% 16.5 % (20.5-51.1); MCH 29.2 PG (27-31); MCV 91.2 FL (81-99); MONO# 1.16 X1000 (0.11-0.59); MPV 11.2 FL (7.4-10.4); NEUT% 73.5 % (42.2-75.2); PLT 144 X1000 (130-400); RBC 4.66 XMIL (4.7-6.1); RDW 14.4 % (11.5-14.5); WBC 14.57 X1000 (4.8-10.8)
[2019-05-15 13:47] LABS: AGAP 8; BUN 23 mg/dL (8-22); CALCIUM 7.4 mg/dL (8.8-10.2); CHLORIDE 108 mmol/L (98-107); COSMO 295; CREATININE 1.1 mg/dL (0.7-1.2); ESTIMATED GFR > 60; GLUCOSE 121 mg/dL (70-104); POTASSIUM 3.7 mmol/L (3.5-5.1); SODIUM 146 mmol/L (136-145); TCO2 29 mmol/L (25-35)
[2019-05-15] MEDS ORDERED: LASIX IV ONE (19:13)
[2019-05-15] MEDS: ARICEPT PO SCH (20:43)
[2019-05-15] MEDS: LIPITOR PO SCH (20:43)
--- NOTE | 2019-05-15 22:14 | PROGRESS NOTE ---
DATE: 05/15/2019 SUBJECTIVE: He is not agitated. He is out of restraints. He seems to be doing okay. OBJECTIVE: Blood pressure 118/69, heart rate 55, respiratory rate 16, temperature 98.7 degrees.Cardiovascular: Regular rate and rhythm. Pulmonary: Bilateral breath sounds. Clear to auscultation. Gastrointestinal: Soft, nontender, nondistended. Bowel sounds are positive. LABORATORY DATA: White count 14, hemoglobin and hematocrit of 13 and 42, platelets of 144,000. Sodium of 146, BUN of 23. PROBLEM LIST: 1. Extended spectrum beta-lactamase Klebsiella urinary tract infection with bacteremia. It is sensitive to ertapenem, for which we are continuing antibiotics. White count has dropped a little today. Chest x-ray does not show any infiltrates. PICC line is in place. Overall, seems to be doing okay. 2. Dementia. Seems to be pretty stable. We will continue to monitor. DISPOSITION: We are looking at trying to get him out of the hospital, but we are having some issues with placement because of the dementia and things like that. Although, he has been out of restraints and seems to be doing better. cc: David Hannah MD
[2019-05-16 06:59] LABS: BASO# 0.02 X1000 (0.0-0.2); BASO% 0.1 % (0.0-0.8); EOS# 0.28 X1000 (0.0-0.7); HEMATOCRIT 45.8 % (42.0-52.0); HEMOGLOBIN 14.4 g/dL (14.0-18.0); IMM GRAN# 0.09 X1000 (0.0-0.04); IMM GRAN% 0.6 % (0.0-0.5); LYMPH# 2.42 X1000 (1.2-3.4); LYMPH% 16.9 % (20.5-51.1); MCH 28.5 PG (27-31); MCHC 31.4 g/dL (33-37); MCV 90.5 FL (81-99); MONO# 1.05 X1000 (0.11-0.59); MONO% 7.3 % (1.7-9.3); MPV 11.2 FL (7.4-10.4); NEUT# 10.44 X1000 (1.4-6.5); NEUT% 73.1 % (42.2-75.2); PLT 168 X1000 (130-400); RBC 5.06 XMIL (4.7-6.1); RDW 14.1 % (11.5-14.5)
[2019-05-16 07:10] LABS: SODIUM 143 mmol/L (136-145)
[2019-05-16 07:11] LABS: AGAP 11; BUN 21 mg/dL (8-22); CALCIUM 7.5 mg/dL (8.8-10.2); CHLORIDE 105 mmol/L (98-107); COSMO 288; ESTIMATED GFR > 60; GLUCOSE 108 mg/dL (70-104); POTASSIUM 3.5 mmol/L (3.5-5.1); TCO2 27 mmol/L (25-35)
[2019-05-16 07:21] LABS: BANDS 1 % (0-1); EOS 3 % (1-10); LYMPHS 12 % (21-51); MONO 8 % (1-9); SEGS 73 % (42-75)
[2019-05-16 07:22] LABS: LARGE PLATELETS OCCASIONAL
[2019-05-16] MEDS: ASPIRIN EC PO SCH (10:54)
[2019-05-16] MEDS: NORVASC PO SCH ×2 (10:54→20:54)
[2019-05-16] MEDS: PRADAXA PO SCH ×2 (11:28→20:53)
[2019-05-16] MEDS: INVANZ 1 GM/NS 1 GM/50 ML IVPB IV SCH (11:28)
[2019-05-16] MEDS: MYCOSTATIN SUSP PO SCH ×4 (11:49→20:59)
--- NOTE | 2019-05-16 17:17 | PROGRESS NOTE ---
DATE: 05/16/2019 SUBJECTIVE: The patient has no major complaints. OBJECTIVE: Vital Signs: Blood pressure 129/59, heart rate 78, respiratory rate 18, temperature 98.2, 99% on room air. Cardiovascular: Regular rate and rhythm. Pulmonary: Bilateral breath sounds clear to auscultation. GI: Soft, nontender, nondistended. Bowel sounds are positive. Extremities: No clubbing or cyanosis. Lymphatic: No peripheral edema. Neurologic: Exam was nonfocal. LABORATORY DATA: White count is still elevated, around 14,000. It really has not come down very much. Hemoglobin and hematocrit 14 and 45, platelets 168. Basic looked normal. Chest x-ray just showed PICC placement, but no other major issues. PROBLEM LIST: 1. Extended-spectrum beta lactamase Klebsiella urinary tract infection with bacteremia. He is currently on ertapenem, which is appropriate therapy. White count has stabilized. Chest x-ray is negative. He unfortunately ripped out his PICC, as predicted by his family member who is charge nurse here, because he does get very confused. 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 So, he is back in restraints, unfortunately. We will continue to follow. 2. Dementia. Besides the intermittent confusion issues, it can be very difficult. He is on Aricept, and that is it. Not sure if we may want to start something at night to kind of help with his confusion, but we will discuss with family and follow. 3. Disposition: This is a difficult situation because he is a long-term resident at [facility], but they will not take him back because of the infection currently. Secondly, he is a wandering risk and cannot be in an unsupervised area. cc: David Hannah MD
[2019-05-16] MEDS: ARICEPT PO SCH (20:53)
[2019-05-16] MEDS: LIPITOR PO SCH (20:54)
[2019-05-16] MEDS: RISPERDAL M-TAB PO SCH (20:54)
[2019-05-17 06:55] LABS: HEMATOCRIT 43.9 % (42.0-52.0); MCHC 31.9 g/dL (33-37); MCV 91.1 FL (81-99); RBC 4.82 XMIL (4.7-6.1); RDW 14.1 % (11.5-14.5); WBC 13.33 X1000 (4.8-10.8)
[2019-05-17 06:56] LABS: BASO# 0.03 X1000 (0.0-0.2); BASO% 0.2 % (0.0-0.8); EOS# 0.27 X1000 (0.0-0.7); IMM GRAN# 0.07 X1000 (0.0-0.04); IMM GRAN% 0.5 % (0.0-0.5); LYMPH# 2.58 X1000 (1.2-3.4); LYMPH% 19.4 % (20.5-51.1); MONO# 1.11 X1000 (0.11-0.59); MONO% 8.3 % (1.7-9.3); MPV 10.9 FL (7.4-10.4); NEUT# 9.27 X1000 (1.4-6.5); NEUT% 69.6 % (42.2-75.2); PLT 204 X1000 (130-400)
[2019-05-17 07:05] LABS: AGAP 9; BUN 23 mg/dL (8-22); CALCIUM 8.2 mg/dL (8.8-10.2); CHLORIDE 105 mmol/L (98-107); COSMO 285; ESTIMATED GFR > 60; GLUCOSE 102 mg/dL (70-104); POTASSIUM 3.4 mmol/L (3.5-5.1); SODIUM 141 mmol/L (136-145); TCO2 28 mmol/L (25-35)
[2019-05-17] MEDS: NORVASC PO SCH ×2 (08:50→21:51)
[2019-05-17] MEDS: ASPIRIN EC PO SCH (08:50)
[2019-05-17] MEDS: PRADAXA PO SCH ×2 (08:50→21:50)
[2019-05-17] MEDS: INVANZ 1 GM/NS 1 GM/50 ML IVPB IV SCH ×2 (08:50→10:17)
[2019-05-17] MEDS: MYCOSTATIN SUSP PO SCH ×4 (08:50→21:51)
--- NOTE | 2019-05-17 15:51 | PROGRESS NOTE ---
DATE: 05/17/2019 SUBJECTIVE: Patient has no major complaints. OBJECTIVE: Vital signs: Blood pressure is 102/57, heart rate 65, respiratory rate 18, temperature 98.4 degrees, 96% on room air. Cardiovascular: Regular rate and rhythm. Pulmonary: Bilateral breath sounds. Clear to auscultation. GI: Soft, nontender, nondistended. LABORATORY DATA: White count 13, hemoglobin and hematocrit are 14 and 43, platelets 204,000. Potassium 3.4. PROBLEM LIST: 1. Extended-spectrum beta lactamase Klebsiella urinary tract infection with bacteremia. Currently on ertapenem. Day 1 will be from negative blood cultures which I think was the , so day 1 on 11. He is on day [address] Aguirre has recommended 6 weeks. We will need to discuss if that is can be abbreviated. He does have a bioprosthetic aortic valve. 2. Dementia. He is stable but he gets periodically agitated. He removed his PICC line yesterday after he was kept out of restraints. 3. Dementia. Appears to be stable. So, we will continue to monitor closely. cc: David Hannah MD [facility]
[2019-05-17] MEDS: ARICEPT PO SCH (21:50)
[2019-05-17] MEDS: LIPITOR PO SCH (21:50)
[2019-05-17] MEDS: RISPERDAL M-TAB PO SCH (21:51)
[2019-05-18 06:58] LABS: BASO# 0.02 X1000 (0.0-0.2); BASO% 0.1 % (0.0-0.8); EOS# 0.19 X1000 (0.0-0.7); EOS% 1.3 % (0.0-10.0); HEMATOCRIT 43.1 % (42.0-52.0); HEMOGLOBIN 13.5 g/dL (14.0-18.0); IMM GRAN# 0.07 X1000 (0.0-0.04); IMM GRAN% 0.5 % (0.0-0.5); LYMPH# 2.65 X1000 (1.2-3.4); LYMPH% 18.7 % (20.5-51.1); MCH 28.7 PG (27-31); MCHC 31.3 g/dL (33-37); MCV 91.5 FL (81-99); MONO# 1.18 X1000 (0.11-0.59); MONO% 8.3 % (1.7-9.3); MPV 10.9 FL (7.4-10.4); NEUT# 10.07 X1000 (1.4-6.5); NEUT% 71.1 % (42.2-75.2); PLT 229 X1000 (130-400); RBC 4.71 XMIL (4.7-6.1); WBC 14.18 X1000 (4.8-10.8)
[2019-05-18 07:23] LABS: AGAP 9; BUN 30 mg/dL (8-22); CALCIUM 8.3 mg/dL (8.8-10.2); CHLORIDE 105 mmol/L (98-107); COSMO 290; CREATININE 1.1 mg/dL (0.7-1.2); ESTIMATED GFR > 60; GLUCOSE 106 mg/dL (70-104); POTASSIUM 3.7 mmol/L (3.5-5.1); SODIUM 142 mmol/L (136-145); TCO2 29 mmol/L (25-35)
[2019-05-18 09:47] LABS: INR 1.28; PROTIME 16.6 Seconds (11.0-16.0)
[2019-05-18] MEDS: PRADAXA PO SCH ×2 (10:31→20:49)
[2019-05-18] MEDS: MYCOSTATIN SUSP PO SCH ×4 (10:31→20:49)
[2019-05-18] MEDS: ASPIRIN EC PO SCH (10:31)
[2019-05-18] MEDS: INVANZ 1 GM/NS 1 GM/50 ML IVPB IV SCH (10:31)
[2019-05-18] MEDS: NORVASC PO SCH ×2 (10:32→20:49)
[2019-05-18] MEDS ORDERED: NS 250 ML ONE (13:42)
--- NOTE | 2019-05-18 15:31 | Diag Imaging Result Doc PS360 ---
EXAM: CHEST-PORTABLE - 05/18/2019 HISTORY: PICC placement TECHNIQUE: Portable chest COMPARISON: 05/15/2018 FINDINGS: There is a PICC which enters from the left. The tip of the PICC is at the expected location of the distal superior vena cava. There is mild cardiomegaly. There is some prominence of central vascular markings. There is no dense consolidation, substantial pleural effusion, or pneumothorax identified. IMPRESSION: Tip of PICC at distal superior vena cava. Mild cardiomegaly and central vascular congestion. Electronically signed by Waqar Dorsey 05/18/2019 3:28 PM
[2019-05-18] MEDS: LIPITOR PO SCH (20:49)
[2019-05-18] MEDS: RISPERDAL M-TAB PO SCH (20:49)
[2019-05-18] MEDS: ARICEPT PO SCH (20:49)
[2019-05-19 06:46] LABS: BASO# 0.02 X1000 (0.0-0.2); BASO% 0.1 % (0.0-0.8); EOS# 0.14 X1000 (0.0-0.7); HEMATOCRIT 43.1 % (42.0-52.0); HEMOGLOBIN 13.5 g/dL (14.0-18.0); IMM GRAN# 0.04 X1000 (0.0-0.04); IMM GRAN% 0.3 % (0.0-0.5); LYMPH# 2.81 X1000 (1.2-3.4); LYMPH% 20.5 % (20.5-51.1); MCH 28.8 PG (27-31); MCHC 31.3 g/dL (33-37); MCV 91.9 FL (81-99); MONO# 1.18 X1000 (0.11-0.59); MONO% 8.6 % (1.7-9.3); MPV 10.7 FL (7.4-10.4); NEUT# 9.49 X1000 (1.4-6.5); NEUT% 69.5 % (42.2-75.2); PLT 249 X1000 (130-400); RBC 4.69 XMIL (4.7-6.1); RDW 14.1 % (11.5-14.5); WBC 13.68 X1000 (4.8-10.8)
[2019-05-19 07:24] LABS: AGAP 8; BUN 31 mg/dL (8-22); CALCIUM 8.5 mg/dL (8.8-10.2); CHLORIDE 106 mmol/L (98-107); COSMO 294; CREATININE 1.1 mg/dL (0.7-1.2); ESTIMATED GFR > 60; GLUCOSE 106 mg/dL (70-104); POTASSIUM 3.7 mmol/L (3.5-5.1); SODIUM 144 mmol/L (136-145); TCO2 30 mmol/L (25-35)
--- NOTE | 2019-05-19 07:36 | PROGRESS NOTE ---
DATE: 05/19/2019 SUBJECTIVE: Patient has no major complaints. OBJECTIVE: Blood pressure is 111/64, heart rate of 60, respiratory rate of 14, temperature 98.4 degrees, 96% on room air. Cardiovascular: Regular rate and rhythm. Pulmonary: Bilateral breath sounds clear to auscultation. GI was soft, nontender, nondistended. Bowel sounds were positive. Extremity Examination: No clubbing or cyanosis. Lymphatic Examination: No peripheral edema. PROBLEM LIST: 1. Extended-spectrum B-lactamase urinary tract infection with bacteremia. He is currently on Invanz. We will continue antibiotics and follow. He is on day 6 of 6 weeks total of antibiotic. 2. Dementia. He is stable on current medications. DISPOSITION: Pending clinical status. He will not be able to go back to [facility] because of his PICC line. We will continue to follow closely. cc: David Hannah MD
[2019-05-19] MEDS: PRADAXA PO SCH ×2 (09:05→21:56)
[2019-05-19] MEDS: NORVASC PO SCH ×2 (09:05→21:56)
[2019-05-19] MEDS: MYCOSTATIN SUSP PO SCH ×4 (09:05→21:56)
[2019-05-19] MEDS: ASPIRIN EC PO SCH (09:06)
[2019-05-19] MEDS: INVANZ 1 GM/NS 1 GM/50 ML IVPB IV SCH (09:43)
--- NOTE | 2019-05-19 20:10 | PROGRESS NOTE ---
DATE: 05/19/2019 SUBJECTIVE: Patient has no new complaints. There is no current family in the room. PHYSICAL EXAMINATION: Vital Signs: Reviewed. Temperature 97.4 degrees, pulse 77, respiratory 20, blood pressure 117/63. General: Patient is lying in the bed. He is in no distress. He is disoriented. HEENT: Normocephalic. Neck: Supple. Cardiovascular: Regular rate. Chest: Clear. Abdomen: Soft. ASSESSMENT: 1. Altered mental status with baseline dementia. 2. Sepsis resolved. 3. Klebsiella pneumoniae bacteremia. Currently he is receiving day 7 of 14 of imipenem. 4. Transaminitis. Advanced dementia. 5. Do Not Resuscitate 1. PLAN: We will continue patient in the hospital. Unfortunately, he cannot return with an IV to his dementia unit. Also, he is very frequently pulling out his IVs. He has just pulled out his PICC line. I am going to discuss with Infectious Disease if we can switch him to IM medication. cc: Matt Greco MD
[2019-05-19] MEDS: RISPERDAL M-TAB PO SCH (21:55)
[2019-05-19] MEDS: LIPITOR PO SCH (21:56)
[2019-05-19] MEDS: ARICEPT PO SCH (21:56)
[2019-05-20 06:07] LABS: BASO# 0.03 X1000 (0.0-0.2); BASO% 0.2 % (0.0-0.8); EOS% 1.4 % (0.0-10.0); HEMATOCRIT 42.7 % (42.0-52.0); HEMOGLOBIN 13.1 g/dL (14.0-18.0); IMM GRAN# 0.05 X1000 (0.0-0.04); IMM GRAN% 0.3 % (0.0-0.5); LYMPH% 19.7 % (20.5-51.1); MCH 28.4 PG (27-31); MCHC 30.7 g/dL (33-37); MCV 92.4 FL (81-99); MONO# 1.17 X1000 (0.11-0.59); MPV 10.6 FL (7.4-10.4); NEUT# 10.36 X1000 (1.4-6.5); NEUT% 70.4 % (42.2-75.2); PLT 253 X1000 (130-400); RBC 4.62 XMIL (4.7-6.1); WBC 14.71 X1000 (4.8-10.8)
[2019-05-20 06:21] LABS: AGAP 7; BUN 34 mg/dL (8-22); CALCIUM 8.4 mg/dL (8.8-10.2); CHLORIDE 106 mmol/L (98-107); COSMO 293; CREATININE 1.1 mg/dL (0.7-1.2); ESTIMATED GFR > 60; GLUCOSE 103 mg/dL (70-104); POTASSIUM 4.1 mmol/L (3.5-5.1); SODIUM 143 mmol/L (136-145); TCO2 30 mmol/L (25-35)
[2019-05-20] MEDS: MYCOSTATIN SUSP PO SCH ×3 (09:47→20:44)
[2019-05-20] MEDS: NORVASC PO SCH ×2 (09:47→20:44)
[2019-05-20] MEDS: ASPIRIN EC PO SCH (09:47)
[2019-05-20] MEDS: PRADAXA PO SCH ×2 (09:47→20:44)
[2019-05-20] MEDS: INVANZ 1 GM/NS 1 GM/50 ML IVPB IV SCH (12:00)
[2019-05-20] MEDS: ARICEPT PO SCH (20:44)
[2019-05-20] MEDS: LIPITOR PO SCH (20:44)
[2019-05-20] MEDS: RISPERDAL M-TAB PO SCH (20:45)
--- NOTE | 2019-05-20 22:01 | PROGRESS NOTE ---
DATE: 05/20/2019 SUBJECTIVE: Patient has no complaints. There is no current family in the room. PHYSICAL EXAMINATION: Vital Signs: Reviewed. Temp 98 degrees, pulse 84, respiratory rate 18, BP 91/65. General: Patient is sleeping, but awakened. He appears disoriented. HEENT: Normocephalic. Neck: Supple. Cardiovascular: Regular rate. Chest: Clear. Abdomen: Soft. Extremities: Moves all extremities. ASSESSMENT: 1. Metabolic encephalopathy secondary to sepsis. 2. Sepsis, resolved, secondary to Klebsiella pneumoniae. 3. Klebsiella pneumoniae bacteremia urinary tract infection. 4. Klebsiella urinary tract infection. 5. Known coronary artery disease. 6. Advanced dementia. PLAN: We will continue patient in the hospital. Today, is currently 8 of 14 of ertapenem. We will continue him in the hospital until further arrangements can be made. cc: Matt Greco MD
[2019-05-21 06:26] LABS: BASO# 0.05 X1000 (0.0-0.2); BASO% 0.3 % (0.0-0.8); EOS# 0.28 X1000 (0.0-0.7); EOS% 1.9 % (0.0-10.0); HEMATOCRIT 42.8 % (42.0-52.0); HEMOGLOBIN 13.5 g/dL (14.0-18.0); IMM GRAN# 0.05 X1000 (0.0-0.04); IMM GRAN% 0.3 % (0.0-0.5); LYMPH# 2.68 X1000 (1.2-3.4); LYMPH% 18.5 % (20.5-51.1); MCH 29.1 PG (27-31); MCHC 31.5 g/dL (33-37); MCV 92.2 FL (81-99); MONO# 1.09 X1000 (0.11-0.59); MONO% 7.5 % (1.7-9.3); MPV 10.6 FL (7.4-10.4); NEUT# 10.37 X1000 (1.4-6.5); NEUT% 71.5 % (42.2-75.2); PLT 252 X1000 (130-400); RBC 4.64 XMIL (4.7-6.1); RDW 13.9 % (11.5-14.5); WBC 14.52 X1000 (4.8-10.8)
[2019-05-21 06:43] LABS: CALCIUM 8.1 mg/dL (8.8-10.2); CREATININE 1.2 mg/dL (0.7-1.2); POTASSIUM 4.1 mmol/L (3.5-5.1)
[2019-05-21] MEDS: ASPIRIN EC PO SCH (08:59)
[2019-05-21] MEDS: NORVASC PO SCH ×3 (08:59→21:44)
[2019-05-21] MEDS: MYCOSTATIN SUSP PO SCH ×4 (08:59→21:43)
[2019-05-21] MEDS: PRADAXA PO SCH ×2 (08:59→21:42)
[2019-05-21] MEDS: INVANZ 1 GM/NS 1 GM/50 ML IVPB IV SCH (09:01)
[2019-05-21] MEDS: ARICEPT PO SCH (21:42)
[2019-05-21] MEDS: RISPERDAL M-TAB PO SCH (21:42)
[2019-05-21] MEDS: LIPITOR PO SCH (21:43)
--- NOTE | 2019-05-22 00:18 | PROGRESS NOTE ---
DATE: 05/21/2019 SUBJECTIVE: The patient has no complaints. No family currently in the room. PHYSICAL EXAMINATION: Vital Signs: Temperature 98 degrees, pulse 84, respiratory rate 18, BP 126/80. General: Patient is awake, alert, currently in no respiratory distress. HEENT: Normocephalic. Neck: Supple. Cardiovascular: Regular rate. Chest: Clear. Abdomen: Soft. Neurologic: Unable to assess given patient's chronic dementia. Does not follow commands nor answer questions. ASSESSMENT: 1. Acute metabolic encephalopathy, resolved. 2. Sepsis, resolved. 3. Klebsiella pneumoniae urinary tract infection. 4. Transaminitis. 5. Known coronary disease. 6. Severe dementia. PLAN: Continue patient in the hospital. Continue IM ertapenem as he is currently continuing to pull out his IV, currently is day 8 of 14. cc: Matt Greco MD
[2019-05-22 07:36] LABS: HEMATOCRIT 44.4 % (42.0-52.0); HEMOGLOBIN 13.7 g/dL (14.0-18.0); MCH 28.9 PG (27-31); MCHC 30.9 g/dL (33-37); MCV 93.7 FL (81-99); MPV 10.9 FL (7.4-10.4); RBC 4.74 XMIL (4.7-6.1); RDW 14.1 % (11.5-14.5); WBC 14.46 X1000 (4.8-10.8)
[2019-05-22] MEDS: NORVASC PO SCH (10:18)
[2019-05-22] MEDS: MYCOSTATIN SUSP PO SCH ×2 (10:18→14:01)
[2019-05-22] MEDS: PRADAXA PO SCH (10:18)
[2019-05-22] MEDS: INVANZ 1 GM/NS 1 GM/50 ML IVPB IV SCH (10:18)
[2019-05-22] MEDS: ASPIRIN EC PO SCH (10:18)
--- NOTE | 2019-05-22 12:23 | DISCHARGE SUMMARY ---
ADMISSION DATE: 05/09/2019 DISCHARGE DATE: 05/22/2019 DIAGNOSES: 1. Klebsiella pneumoniae, extended spectrum beta lactamase bacteremia. 2. Klebsiella pneumoniae, extended spectrum beta lactamase urinary tract infection. 3. Acute kidney injury, resolved. 4. Atrial fibrillation, rate controlled. 5. History of coronary artery disease status post coronary artery bypass graft. 6. Advanced dementia. 7. Septic shock, resolved. 8. Metabolic encephalopathy secondary to sepsis. The patient is back to baseline. DIAGNOSTICS: 1. 05/09/2019, chest x-ray revealed cardiomegaly and pulmonary vascular congestion. 2. 05/09/2019, CT of the head revealed no acute processes. 3. 05/10/2019, chest x-ray, stable cardiomegaly as significant pulmonary vascular congestion. No infiltrates or definite edema. 4. 05/10/2019, renal ultrasound revealed a negative exam. Kidneys and urinary bladder normal. No hydronephrosis or mass. 5. 05/15/2019, chest x-ray, PICC catheter tip believed to be within the upper to mid SVC. Cardiomegaly. 6. 05/18/2019, chest x-ray, tip of PICC in distal superior vena cava. Mild cardiomegaly with central vascular congestion. CONSULT: Dr. Sam Aguirre, Infectious Disease. LABORATORY DATA: 1. Microbiology: 05/09/2019 blood cultures revealed ESBL positive Klebsiella pneumoniae. 2. Blood cultures 05/13/2019 x 2 sets revealed no growth after 5 days. 3. Urine culture revealed Klebsiella pneumoniae, ESBL positive. HOSPITAL COURSE: Mr. Salguero presented to the emergency room with weakness and altered mental status. He was septic secondary to ESBL positive Klebsiella pneumoniae bacteremia and urinary tract infection for which he has been treated with ertapenem. Duration of antibiotics was discussed with Dr Aguirre, who felt that 14 days wouls suffice. He has received 9 days of IV ertapenem. He will receive 5 more days of ertapenem IM to complete 2 weeks treatment. PICC catheter was placed and the patient pulled his PICC catheter out. It was replaced on the 18 of May. He presented in acute kidney injury with a creatinine of 2.6. Lisinopril was discontinued and he was changed over to Norvasc. With hydration, creatinine is now 1.1 to 1.2. He initially had transaminitis. We monitored electrolytes and treated as appropriate. He does have a history of atrial fibrillation. He remained rate controlled throughout the hospitalization. He did require restraints. Thankfully, they were able to be discontinued on the . He is back to his baseline mental status having severe dementia. It was initially felt that the patient would require 6 weeks of IV antibiotics. After discussion with Dr. Aguirre of Infectious Disease, he felt that 14 days of Invanz would be adequate, and as of today, May 22, the patient has received 9 doses. His PICC line will be discontinued. He will be discharged back to [facility] and he will receive 5 more doses of Invanz IM. He is being discharged to [facility] in stable condition via EMS transport with family members present. The patient is a DNR level 1. This is a greater than 30 minute discharge. DISCHARGE MEDICATIONS: 1. Risperdal 0.5 mg p.o. at bedtime. 2. Calmoseptine ointment as directed. 3. Invanz 1 g IM x5 days. Dose will start 05/23/2019 and end 05/27/2019. 4. Blistex medicated lip balm as needed. 5. Pradaxa 150 mg p.o. b.i.d. 6. Vitamin B12 2500 mcg sublingual daily. 7. Vitamin D3 50,000 units as directed. 8. Lipitor 20 mg p.o. at bedtime. 9. Norvasc 5 mg p.o. b.i.d. 10. Aspirin 81 mg p.o. daily. FOLLOWUP: 1. He needs to follow up Dr. Sam Aguirre in 2 weeks. 2. The patient will need a urine culture in 7 days. 3. A CBC and CMP in 3 days to be called to the biomedical photographer. Dictated by PAULO Zelaya for Matt Greco MD cc: PAULO Zelaya MD [facility]
[2019-05-22 12:54] VITALS: BP 99/57
--- NOTE | 2019-05-23 03:49 | DISCHARGE SUMMARY ---
ADMISSION DATE: 05/09/2019 DISCHARGE DATE: 05/22/2019 ADDENDUM: Patient seen and examined by myself. Full note dictated and discussed with nurse practitioner. Patient is stable to discharge today as he can continue ertapenem for 4 more days IM. He currently is in no distress. He appears at his baseline. cc: Matt Greco MD
== END 2019-05-22 15:40 | DRG 871 ==
LOC: SUPCPDRO → ED 16:29 → SUATTDRO 20:41 → EDIPHOLD 20:41 → ICU 05-10 07:46 → P.MEDSURG 05-12 14:54
PROVIDERS: ATTEND Family Medicine

== ENCOUNTER 2019-06-01 15:22 | Inpatient (IN) ==
[2019-06-01] MEDS ORDERED: NS 1,000 ML IV ONE ×3 (15:34→23:14)
[2019-06-01 15:57] LABS: BASO# 0.03 X1000 (0.0-0.2); BASO% 0.1 % (0.0-0.8); HEMATOCRIT 39.3 % (42.0-52.0); HEMOGLOBIN 12.5 g/dL (14.0-18.0); IMM GRAN# 0.39 X1000 (0.0-0.04); IMM GRAN% 1.3 % (0.0-0.5); LYMPH# 1.65 X1000 (1.2-3.4); LYMPH% 5.6 % (20.5-51.1); MCH 29.1 PG (27-31); MCHC 31.8 g/dL (33-37); MCV 91.6 FL (81-99); MONO# 1.86 X1000 (0.11-0.59); MONO% 6.4 % (1.7-9.3); MPV 11.1 FL (7.4-10.4); NEUT# 25.31 X1000 (1.4-6.5); NEUT% 86.6 % (42.2-75.2); PLT 164 X1000 (130-400); RBC 4.29 XMIL (4.7-6.1); WBC 29.24 X1000 (4.8-10.8)
[2019-06-01 16:08] LABS: INR 2.22; PROTIME 25.9 Seconds (11.0-16.0)
[2019-06-01 16:09] LABS: PTT 57.5 Seconds (22.3-41.8)
--- NOTE | 2019-06-01 16:13 | Diag Imaging Result Doc PS360 ---
EXAM: CHEST-1 VIEW HISTORY: apnea TECHNIQUE: Single view. COMPARISON: 05/18/2019 FINDINGS: There is cardiomegaly. PICC catheter is been removed. There is mild vascular congestion. No dense consolidation. Median sternotomy wires are present. No infiltrate, effusion, or pneumothorax is appreciated. IMPRESSION: Cardiomegaly. Mild vascular congestion.. Electronically signed by Karie Walter 06/01/2019 4:10 PM
[2019-06-01 16:25] LABS: ALBUMIN 2.7 g/dL (3.5-5.0); CALCIUM 8.5 mg/dL (8.8-10.2); TOTAL BILIRUBIN 1.1 mg/dL (0.20-1.00); TOTAL PROTEIN 6.4 g/dL (6.3-8.3)
[2019-06-01 16:39] LABS: BE 1.6 mmoll (-3.0-3.0); BLOOD TYPE ARTERIAL; HCO3-(ACT) 26.2 mmoll (20.0-26.0); METHB 1.2 % (0.0-1.5); O2(CT) 18.9 mL/dL (15.0-23.0); PCO2(98.6) 32 mmHg (35-45); PO2(98.6) 294 mmHg (60-100); SAMPLE BLOOD; SAO2 100.6 % (95.0-100.0); THB 13.3 g/dL (11.5-17.4); pH(98.6) 7.49 (7.35-7.45)
[2019-06-01 16:42] LABS: ALLEN TEST YES; MODALITY NRB
[2019-06-01 16:46] LABS: BILIRUBIN URINE NEGATIVE (NEGATIVE); BLOOD URINE 4+ (NEGATIVE); CLARITY VERY CLOUDY (CLEAR); COLOR RED; GLUCOSE URINE NEGATIVE (NEGATIVE); KETONE URINE TRACE mg/dL (NEGATIVE); LEUKOCYTES URINE 2+ (NEGATIVE); NITRITE URINE NEGATIVE (NEGATIVE); PH URINE 6.5; PROTEIN URINE 2+(100 mg/dL) mg/dL (NEGATIVE); UROBILINOGEN URINE NORMAL
[2019-06-01 16:50] LABS: BANDS 11 % (0-1); HYPOCHROM 2+; LYMPHS 5 % (21-51); MONO 3 % (1-9); SEGS 81 % (42-75)
--- NOTE | 2019-06-01 16:59 | Diag Imaging Result Doc PS360 ---
CT HEAD W/O CONTRAST - 06/01/2019 INDICATION: decreased responsiveness COMPARISON: 05/09/2019 FINDINGS: Stable severe cerebral atrophy. Stable mild cerebral white matter chronic microvascular ischemia. No intracranial mass or hemorrhage. The skull is intact. The sinuses, mastoids, and middle ears are clear. IMPRESSION: Advanced chronic changes. No acute process. This exam was performed using automated exposure control, adjustment of mA or kV according to patient size, and/or use of iterative reconstruction technique Electronically signed by Johnny Mejia 06/01/2019 4:57 PM
[2019-06-01] MEDS ORDERED: ROCEPHIN IV ONE (17:14)
[2019-06-01] MEDS ORDERED: ZOSYN 3.375 GM in NS 50 ML IV ONE (17:15)
--- NOTE | 2019-06-01 17:30 | PROVIDER DOCUMENTATION ---
This chart was entered by Kelly Callahan Scribe, acting as scribe for Daija Davenport MD. HPI-Critical Care - General Chief Complaint: Unresponsive Stated Complaint: HIGH TEMPERATURE Time Seen by Provider: 06/01/19 15:31 Patient arrived via EMS?: Yes Source: EMS Allergies/Adverse Reactions: Allergies Allergy/AdvReac Type Severity Reaction Status Date / Time No Known Allergies Allergy Verified 05/09/19 17:58 Home Medications: Home Medication List Medication Instructions Recorded Confirmed Last Taken Type Aspirin [Adult Aspirin] 81 mg PO DAILY 05/09/19 05/09/19 Unknown History Cholecalciferol (Vitamin D3) 1 cap PO DIRECTED 05/09/19 05/09/19 Unknown History [D3-50] Cyanocobalamin S.l. [Vitamin B-12] 1 tab SUBLINGUAL DAILY 05/09/19 05/09/19 Unknown History Dabigatran Etexilate Mesylate 150 mg PO BID 05/09/19 05/09/19 Unknown History [Pradaxa] Donepezil HCl 1 tab PO QHS 05/09/19 05/09/19 Unknown History ATORVAstatin [Lipitor] 20 mg PO QHS tab 05/22/19 Unknown Rx Amlodipine [Norvasc] 5 mg PO BID tab 05/22/19 Unknown Rx Dimethicone/Oxybenzone [place] 0 gm TOP PRN PRN stick 05/22/19 Unknown Rx [Blistex Medicated Workman Lip [place]] Ertapenem [Invanz] 1 gm IM DAILY #5 vial 05/22/19 Unknown Rx Menthol/Zinc Oxide Ointment 1 gm TOP PRN PRN tube 05/22/19 Unknown Rx [Calmoseptine Ointment] Risperidone [Risperdal M-Tab] 0.5 mg PO QHS tab.rapdis 05/22/19 Unknown Rx - History of Present Illness-Critical Care Nature of Presenting Problem: 83yom presents to ED by EMS cc lethargic, high temp and low b/p according to report EMS got from [facility]). EMS reports they were told pt is being treated for UTI and Bronchitis with IM Rocephin. EMS reports periods of apnea in route to ED. Pt has hx of HTN, Afib, stage 3 renal disease, MO and prostate cancer. Severity in ED: reports: severe Onset/Duration: reports: unsure Timing: reports: still present EMS Initial Findings:: unresponsive Pre-hospital Treatment: Initiated IV fluids Review of Systems - Adult - REVIEW OF SYSTEMS - ADULT ROS:: ROS per EMS Constitutional: reports: see HPI, fever Eyes: reports: no symptoms reported Ears, Nose, Mouth & Throat: reports: no symptoms reported Cardiovascular: reports: see HPI, other (low b/p) Respiratory: reports: see HPI, other (periods of apnea) Gastrointestinal: reports: no symptoms reported Genitourinary: reports: no symptoms reported Musculoskeletal: reports: no symptoms reported Integumentary: reports: no symptoms reported Neurological: reports: no symptoms reported Psychiatric: reports: no symptoms reported Endocrine: reports: no symptoms reported Hematologic/Lymphatic: reports: no symptoms reported Allergic/Immunologic: reports: no symptoms reported All Other Systems: Reviewed and Negative Past History - Adult - PAST MEDICAL HISTORY-ADULT Review of Records: reports: Nursing Assessment Review, Medications Reviewed, Social history reviewed & non-contributory. Major Childhood Illnesses: reports: denies history Cardiovascular: reports: denies history Respiratory: reports: denies history Gastrointestinal: reports: denies history Obstetrical/Gynecological: reports: denies history Genitourinary: reports: denies history Musculoskeletal: reports: denies history Neurological: reports: denies history Psychiatric: reports: denies history Endocrine/Immune: reports: denies history Other Conditions: reports: denies history - PRIOR SURGERIES/PROCEDURES Surgical/Procedure History: reports: reviewed, not pertinent - IMMUNIZATION STATUS Childhood Immunizations: See Nurse Assessment Flu Vaccine: See Nurse Assessment - FAMILY HISTORY Family History: reviewed, not pertinent Physical Exam-General - PHYSICAL EXAM-ADULT Initial Vital Signs Reviewed: Yes - CONSTITUTIONAL General Appearance: lethargic Progress - PLAN OF CARE/RESULTS Progress/Plan/Lab Results: Vital Signs - 8 hr 06/01/19 15:22 06/01/19 15:45 06/01/19 15:59 Temperature 98.4 F 98.6 F Pulse Rate 98 H 92 H Respiratory Rate 14 14 Blood Pressure 66/48 81/57 O2 Sat by Pulse Oximetry 98 99 100 06/01/19 17:21 Temperature Pulse Rate 84 Respiratory Rate 19 Blood Pressure 95/60 O2 Sat by Pulse Oximetry 99 Laboratory Results - last 24 hr 06/01/19 06/01/19 06/01/19 15:08 15:40 15:40 WBC 29.24 H RBC 4.29 L Hgb 12.5 L Hct 39.3 L MCV 91.6 MCH 29.1 MCHC 31.8 L RDW Std Deviation 14.0 Plt Count 164 MPV 11.1 H Immature Gran % (Auto) 1.3 H Neut % (Auto) 86.6 H Lymph % (Auto) 5.6 L [place] % (Auto) 6.4 Eos % (Auto) 0.0 Baso % (Auto) 0.1 Immature Gran # (Auto) 0.39 H Neut # (Auto) 25.31 H Lymph # (Auto) 1.65 [place] # (Auto) 1.86 H Eos # (Auto) 0.00 Baso # (Auto) 0.03 Segmented Neutrophils 81 H Band Neutrophils 11 H Lymphocytes 5 L Monocytes 3 Hypochromia 2+ PT INR PTT (Actin FS) Specimen Type ARTERIAL Sample Site L RADIAL pH 7.49 H pCO2 32 L pO2 294 H HCO3 26.2 H Base Excess 1.6 Oxyhemoglobin 97.0 ABG O2 Sat (Calculated) 18.9 ABG O2 Saturation 100.6 H ABG Carboxyhemoglobin 2.40 ABG Methemoglobin 1.2 Hardeep Test YES A-a O2 Difference 379.0 Total Hemoglobin 13.3 Lactate 2.50 H Blood Gas Modality NRB FiO2 % 100.0 Sodium 149 H Potassium 4.0 Chloride 113 H Carbon Dioxide 22 L Anion Gap 14 BUN 32 H Creatinine 2.0 H Estimated GFR/1.73 m2 32 BUN/Creatinine Ratio 16 Glucose 85 Calculated Osmolality 302 Calcium 8.5 L Total Bilirubin 1.10 H AST 24 ALT 19 Alkaline Phosphatase 95 Creatine Kinase 114 Troponin T Total Protein 6.4 Albumin 2.7 L Globulin 4.0 Albumin/Globulin Ratio 1.0 Plasma Lactate Urine Color Urine Clarity Urine pH Ur Specific Calvin Urine Protein Urine Ketones Urine Blood Urine Nitrite Urine Bilirubin Urine Urobilinogen Urine WBC Urine Glucose 06/01/19 06/01/19 06/01/19 15:40 15:40 15:40 WBC RBC Hgb Hct MCV MCH MCHC RDW Std Deviation Plt Count MPV Immature Gran % (Auto) Neut % (Auto) Lymph % (Auto) [place] % (Auto) Eos % (Auto) Baso % (Auto) Immature Gran # (Auto) Neut # (Auto) Lymph # (Auto) [place] # (Auto) Eos # (Auto) Baso # (Auto) Segmented Neutrophils Band Neutrophils Lymphocytes Monocytes Hypochromia PT 25.9 H INR 2.22 PTT (Actin FS) 57.5 H Specimen Type Sample Site pH pCO2 pO2 HCO3 Base Excess Oxyhemoglobin ABG O2 Sat (Calculated) ABG O2 Saturation ABG Carboxyhemoglobin ABG Methemoglobin Hardeep Test A-a O2 Difference Total Hemoglobin Lactate Blood Gas Modality FiO2 % Sodium Potassium Chloride Carbon Dioxide Anion Gap BUN Creatinine Estimated GFR/1.73 m2 BUN/Creatinine Ratio Glucose Calculated Osmolality Calcium Total Bilirubin AST ALT Alkaline Phosphatase Creatine Kinase Troponin T 0.028 Total Protein Albumin Globulin Albumin/Globulin Ratio Plasma Lactate 3.3 H Urine Color Urine Clarity Urine pH Ur Specific Calvin Urine Protein Urine Ketones Urine Blood Urine Nitrite Urine Bilirubin Urine Urobilinogen Urine WBC Urine Glucose 06/01/19 16:30 WBC RBC Hgb Hct MCV MCH MCHC RDW Std Deviation Plt Count MPV Immature Gran % (Auto) Neut % (Auto) Lymph % (Auto) [place] % (Auto) Eos % (Auto) Baso % (Auto) Immature Gran # (Auto) Neut # (Auto) Lymph # (Auto) [place] # (Auto) Eos # (Auto) Baso # (Auto) Segmented Neutrophils Band Neutrophils Lymphocytes Monocytes Hypochromia PT INR PTT (Actin FS) Specimen Type Sample Site pH pCO2 pO2 HCO3 Base Excess Oxyhemoglobin ABG O2 Sat (Calculated) ABG O2 Saturation ABG Carboxyhemoglobin ABG Methemoglobin Hardeep Test A-a O2 Difference Total Hemoglobin Lactate Blood Gas Modality FiO2 % Sodium Potassium Chloride Carbon Dioxide Anion Gap BUN Creatinine Estimated GFR/1.73 m2 BUN/Creatinine Ratio Glucose Calculated Osmolality Calcium Total Bilirubin AST ALT Alkaline Phosphatase Creatine Kinase Troponin T Total Protein Albumin Globulin Albumin/Globulin Ratio Plasma Lactate Urine Color RED Urine Clarity VERY CLOUDY A Urine pH 6.5 Ur Specific Calvin 1.020 Urine Protein 2+(100 mg/dL) A Urine Ketones TRACE Urine Blood 4+ Urine Nitrite NEGATIVE Urine Bilirubin NEGATIVE Urine Urobilinogen NORMAL Urine WBC 2+ A Urine Glucose NEGATIVE Orders Category Date Time Status Cardiac Monitoring DIRECTED Care 06/01/19 15:33 Active Penny Cath Insertion ORDERED Care 06/01/19 16:39 Active IV Insertion ORDERED Care 06/01/19 15:33 Completed Notify MD of + Sepsis Screen NOW Care 06/01/19 15:33 Active Notify Physician As Ordered Care 06/01/19 15:33 Active CHEST-1 VIEW [RAD] Stat Exams 06/01/19 15:[address] HEAD W/O CONTRAST [CT] Stat Exams 06/01/19 15:56 Completed ABG [RESP] Routine Lab 06/01/19 15:08 Completed BLOOD CULTURE [BLDCUL] Stat Lab 06/01/19 15:45 Ordered CBC WITH DIFF [HEME] Stat Lab 06/01/19 15:40 Completed CK PROFILE [SP CHEM] Stat Lab 06/01/19 15:40 Completed COMPREHENSIVE METABOLIC PANEL [CHEM] Stat Lab 06/01/19 15:40 Completed LACTATE, PLASMA [CHEM] Lab 06/01/19 18:45 Uncollected LACTATE, PLASMA [CHEM] Lab 06/01/19 21:45 Uncollected LACTATE, PLASMA [CHEM] Q3H Lab 06/01/19 15:40 Completed PROTIME WITH INR [COAG] Stat Lab 06/01/19 15:40 Completed PTT [COAG] Stat Lab 06/01/19 15:40 Completed TROPONIN T Stat Lab 06/01/19 15:[address] W/POSS RFLX CULT [URINALYSIS] Stat Lab 06/01/19 16:30 Results 0.9% Sodium Chloride Inj [Ns] 1,000 ml Med 06/01/19 15:34 Discontinued IV 999 mls/hr 0.9% Sodium Chloride Inj [Ns] 1,000 ml Med 06/01/19 17:14 Active IV 999 mls/hr CefTRIAXONE [Rocephin] Med 06/01/19 17:14 Discontinued 1 gm IV NOW ONE Piperacillin/Tazobactam [Zosyn] 3.375 gm Med 06/01/19 17:15 Active 0.9% Sodium Chloride Inj [Ns] 50 ml IV NOW Oxygen Device Stat Oth 06/01/19 15:33 Active Result Diagrams: 06/01/19 15:40 06/01/19 15:40 - XRAY 1 XRAY: Bilateral XRAY Study: Chest Impression: See EMR Report (IMPRESSION: Cardiomegaly. Mild vascular congestion.. Electronically signed by Karie Walter 06/01/2019 4:10 PM) - CT/MRI 1 CT Study: Head Impression: See EMR Report (IMPRESSION: Advanced chronic changes. No acute process. This exam was performed using automated exposure control, adjustment of mA or kV according to patient size, and/or use of iterative reconstruction technique Electronically signed by Johnny Mejia 06/01/2019 4:57 PM) - CONSULTS/PCP/HOSPITALIST Notification #1 *Consult/PCP/Hospitalist*: Dr. Dupont Time Discussed: 17:23 Consult Disposition: Admit (accepted pt) Departure - Departure Date of Disposition Decision: 06/01/19 Time of Disposition Decision: 17:22 DIAGNOSIS: Unresponsive Sepsis Qualifiers: Sepsis type: sepsis due to unspecified organism Sepsis acute organ dysfunction status: unspecified Qualified Code(s): A41.9 - Sepsis, unspecified organism Disposition: ADMITTED INPATIENT 09 Certified Medical Emergency: Emergent Condition: Critical Referrals and Follow-Ups: None,PCP [Primary Care Provider] - - Critical Care Note This patient required my direct & personal management of CC.: Yes Total Time (mins): 75 Critical Care Statement: This patient required my direct personal management to treat or rule out processes, the absence of which, could potentiallly result in sudden, clinically significant life or limb threatening deterioration. Attestation - Physician/ KARLEE Attestation Patient care was provided by Advanced Practice Provider:: No The physician spent face to face time with patient:: Yes Advanced Practice Provider documentation review:: Supervising physician onsite and consulted in the evaluation and care of this patient. The physician did have a face to face encounter with the patient. This chart was documented by the indicated scribe, (Kelly Callahan Scribe) and accurately reflects the services I performed and decisions made by me, Daija Davenport MD, as attested by the provider's signature.
[2019-06-01 17:38] LABS: URINE SOURCE CATH
[2019-06-01 17:39] LABS: URINE BACTERIA NEGATIVE /HFP; URINE CAST NONE SEEN /LPF; URINE CRYSTAL NONE SEEN /HPF; URINE EPITHELIAL CELLS <10 /HPF (<10); URINE RBC TNTC /HPF (<10); URINE YEAST NONE SEEN /HPF
[2019-06-01] MEDS: MERREM 500 MG in NS 50 ML IV SCH (18:59)
[2019-06-01] MEDS ORDERED: TEFLARO 400 MG in NS 250 ML IV SCH (19:00)
--- NOTE | 2019-06-01 19:14 | Diag Imaging Result Doc PS360 ---
CT THORAX W/O CONTRAST, CT ABDOMEN/PELVIS W/O CONTRAST - 06/01/2019 INDICATION: aspiration pna suspected COMPARISON: None FINDINGS: CHEST: There are sternotomy wires. There is an aortic valve replacement. There is aneurysmal dilation of the ascending aorta. This measures about 5 cm. Heart size is otherwise top normal. No adenopathy. Airways are clear. There is some patchy linear atelectasis or infiltrate in the lung bases and in the lingula.There are moderate degenerative changes of the spine. No acute or suspicious bony lesion. Abdomen pelvis: There are numerous small dense gallstones in the gallbladder. No gallbladder distention or inflammation. There is a tiny nonobstructing left renal stone measuring 2 mm. No hydronephrosis. There are a couple small left renal cysts. There is significant constipation of the distal colon. There is also mild rectal stool impaction. Penny catheter in the urinary bladder. Urinary bladder and prostate are grossly normal. There are moderate degenerative changes of the spine. No acute or suspicious bony lesion. IMPRESSION: 1. Hazy central atelectasis versus atypical infiltrates in the lungs. 2. Borderline cardiomegaly. 3. Aneurysmal dilation of the ascending aorta. 4. Constipation with rectal stool impaction. 5. Gallbladder stones. 6. Small nonobstructing left renal stone. This exam was performed using automated exposure control, adjustment of mA or kV according to patient size, and/or use of iterative reconstruction technique Electronically signed by Johnny Mejia 06/01/2019 7:12 PM
[2019-06-01] MEDS: NS 1,000 ML IV SCH (19:37)
--- NOTE | 2019-06-01 21:01 | HISTORY AND PHYSICAL ---
PRIMARY CARE PHYSICIAN: Dr. Crabtree, at [facility]. CHIEF COMPLAINT: Patient was brought unresponsive. HISTORY OF PRESENT ILLNESS: This is an 83-year-old male who was brought to the emergency department by ambulance with main complaint of lethargy, high temperature, and low blood pressure. There are no family members in the room. All the information that I have is from ER physician. Apparently, this patient has been treated at [facility] for UTI and bronchitis with IM Rocephin. He was recently admitted to the hospital and discharged on 05/22/2019. He was treated for Klebsiella pneumoniae, ESBL bacteremia. He finished his treatment with Invanz on 05/26/2019. As we mentioned before, he was sent over here because of lethargy and fever. Here, according to the ER record, we have not documented any fever. At this point, we are going to admit him to the hospital for further evaluation and treatment. In the ER also, he was found to have a low blood pressure that now is better because of IV fluids that he was provided here. PAST MEDICAL HISTORY: 1. Atrial fibrillation, on chronic anticoagulation with Pradaxa. 2. Carotid artery disease. 3. Vascular dementia. 4. Hypertension. 5. Abdominal aortic aneurysm. 6. Mitral and aortic valve insufficiency. 7. Chronic kidney disease, stage 3A. 8. 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 9. History intracardiac thrombosis. PAST SURGICAL HISTORY: 1. Elbow surgery. 2. Aortic valve replacement. SOCIAL HISTORY: Patient lives in a intermediate at [facility]. As per previous H and P, patient is a former smoker. FAMILY HISTORY: Not possible to obtain. ALLERGIES: Patient has no known drug allergies. PHYSICAL EXAMINATION: VITAL SIGNS: Temperature 98.4 degrees, heart rate 85, respiratory rate 14, blood pressure 95/60, O2 saturation 100% on non-rebreather mask at 15 L/minute. GENERAL: This is a chronically ill looking, unresponsive 83-year-old male, lying in bed, in no acute distress. HEENT: Head is normocephalic, atraumatic. Mucous membranes dry. Pupils equal, round, reactive to light and accommodation. NECK: No JVD noted. No carotid bruits. No lymphadenopathy. No thyromegaly. CARDIOVASCULAR: Patient has aortic systolic murmur noted, 4/6 in intensity, irregularly irregular heart rhythm, tachycardic. RESPIRATORY: Coarse breath sounds noted in both pulmonary bases. The patient is not using any accessory muscles or having work of breathing. ABDOMEN: Soft, a little bit distended, apparently nontender to palpation. Bowel sounds present. No organomegaly. EXTREMITIES: No clubbing or cyanosis, but edema noted in both lower extremities. NEUROLOGICAL: The patient is completely obtunded. Responds to painful stimuli only. Of course, he does not follow any commands. LABORATORY DATA: White cell count is 29.24, hemoglobin 12.5, hematocrit 39.3, platelets 164,000, with INR 2.2. ABG shows pH 7.49, with pCO2 32 and pO2 44, and that was taking on non-rebreather mask. BMP reveals sodium 139, with chloride 113, creatinine 2.0. ASSESSMENT: 1. Metabolic encephalopathy. 2. Suspected urinary tract infection. 3. Acute hypoxemic respiratory failure. 4. Hypotension, most likely secondary to sepsis. 5. Acute kidney injury. 6. Atrial fibrillation,, on chronic anticoagulation. PLAN: The patient was basically brought to the emergency department unresponsive. I think the patient is septic. His blood pressure was low on admission, and with 2 L of normal saline and also with normal saline at 100 mL/hour, blood pressure is barely reaching the 100s. I think, at this point, we need to send this patient to intensive care unit. We will consult Pulmonary. We will transfer this patient to [facility]. We will keep an eye on him, see if he may need pressors overnight. We will start with broad-spectrum antibiotic with Teflaro and also with meropenem, considering his history of extended-spectrum beta lactamase Klebsiella pneumonia infection. We will provide also breathing treatments as well for him. The CT of abdomen and pelvis did show hazy central atelectasis versus atypical infiltrates in the lungs. I will treat him as a pneumonia, community acquired, considering that he came from the intermediate. It is noted also that he has constipation with rectal stool impaction and gallbladder stone. Even though the physical exam did not show that this patient has any inflammation of the gallbladder, we will check an abdominal ultrasound tomorrow to rule out any sepsis coming from the gallbladder, considering the stones noted on the CT scan. For acute kidney injury, actually we will continue with intravenous fluids. Last time, during all his hospitalization, his creatinine has been completely normal. For atrial fibrillation, because patient is unable to take any medications by mouth, we will place this patient on heparin. We will check lactate tomorrow and arterial blood gases. It is important to remark that patient is Do Not Resuscitate level 1. We will continue to monitor this patient closely. We will see what the urine culture and blood culture show. CRITICAL CARE TIME: 45 minutes. cc: Mitch Patel MD
[2019-06-01] MEDS ORDERED: VITAMIN D PO SCH (22:02)
[2019-06-01] MEDS ORDERED: ZOFRAN IV PRN (22:02)
[2019-06-01] MEDS ORDERED: TYLENOL PO PRN (22:38)
[2019-06-01] MEDS: ARICEPT PO SCH (23:21)
[2019-06-01] MEDS: LIPITOR PO SCH (23:22)
[2019-06-01] MEDS: HEPARIN SUBQ SCH (23:30)
[2019-06-01] MEDS: LEVOPHED 8 MG in D5 1/2 NS 250 ML IV SCH (23:30)
[2019-06-02] MEDS: MERREM 500 MG in NS 50 ML IV SCH ×3 (02:22→18:46)
[2019-06-02 02:49] LABS: ALLEN TEST YES; BE -2.3 mmoll (-3.0-3.0); BLOOD TYPE ARTERIAL; HCO3-(ACT) 23.1 mmoll (20.0-26.0); METHB 1.7 % (0.0-1.5); O2(CT) 17.1 mL/dL (15.0-23.0); O2HB 96.8 % (95.0-99.0); PCO2(98.6) 24 mmHg (35-45); PO2(98.6) 181 mmHg (60-100); SAMPLE BLOOD; SAO2 99.8 % (95.0-100.0); THB 12.3 g/dL (11.5-17.4); pH(98.6) 7.51 (7.35-7.45)
[2019-06-02 02:50] LABS: MODALITY CANNULA
[2019-06-02] MEDS: NS 1,000 ML IV SCH ×3 (04:13→19:46)
[2019-06-02] MEDS: LEVOPHED 8 MG in D5 1/2 NS 250 ML IV SCH ×3 (05:58→19:46)
[2019-06-02] MEDS: TEFLARO 400 MG in NS 250 ML IV SCH ×2 (06:30→18:47)
[2019-06-02 06:53] LABS: INR 2.08; PROTIME 23.9 Seconds (11.0-16.0)
[2019-06-02 07:18] LABS: BASO# 0.02 X1000 (0.0-0.2); BASO% 0.1 % (0.0-0.8); EOS# 0.01 X1000 (0.0-0.7); HEMATOCRIT 37.3 % (42.0-52.0); HEMOGLOBIN 11.8 g/dL (14.0-18.0); IMM GRAN# 0.27 X1000 (0.0-0.04); IMM GRAN% 0.7 % (0.0-0.5); LYMPH# 2.06 X1000 (1.2-3.4); LYMPH% 5.2 % (20.5-51.1); MCH 29.8 PG (27-31); MCHC 31.6 g/dL (33-37); MCV 94.2 FL (81-99); MONO# 2.35 X1000 (0.11-0.59); MPV 12.1 FL (7.4-10.4); NEUT# 34.62 X1000 (1.4-6.5); PLT 148 X1000 (130-400); RBC 3.96 XMIL (4.7-6.1); RDW 14.5 % (11.5-14.5); WBC 39.33 X1000 (4.8-10.8)
[2019-06-02 08:02] LABS: BANDS 6 % (0-1); LYMPHS 2 % (21-51); MONO 2 % (1-9); SEGS 90 % (42-75)
[2019-06-02] MEDS: ASPIRIN EC PO SCH (08:20)
[2019-06-02] MEDS: HEPARIN SUBQ SCH ×2 (09:41→21:01)
--- NOTE | 2019-06-02 14:36 | INFECTIOUS DISEASE PROGRESS NO ---
DATE: 06/02/2019 CONCLUSION: The patient is readmitted to the hospital. He has a gram-negative barbie bacteremia. Last time the patient was in, he had an extended spectrum beta lactamase producing Klebsiella urinary tract infection and bacteremia. It may well be that the same infection has recurred. MEDICATIONS: The patient is on a combination of meropenem and ceftaroline. PHYSICAL EXAMINATION: Vital Signs: Temperature is 98.3 degrees, pulse 82, respirations 18, blood pressure 119/61. General: This is an ill-appearing, elderly male. He is obtunded. Head, Eyes, Ears, Nose, and Throat: No drainage is noted from the nose or ears. Neck: There is slight resistance to passive movement of his neck. Lungs: Clear to auscultation. Cardiovascular: Heart rate is irregular. There is a systolic murmur. Abdomen: Soft and nontender. Extremities: The patient has peripheral IVs. The IV site is not erythematous or draining. The patient's legs are not erythematous. Neurologic: The patient is obtunded. He did not respond to verbal stimuli. There is no tremor. Integument: No rash noted. LAB AND X-RAY: The patient's CT scan of the thorax showed atelectasis versus infiltrate and an aortic aneurysm. CT scan of the head showed no acute disease including no sinusitis. The patient's CBC shows a white count of 39,330, hemoglobin 11.8, and platelet count 148,000. Blood gases show a pH of 7.51, a PO2 of 181, a pCO2 of 24. Creatinine is 2. GFR is 32. Urinalysis showed white cells but no bacteria. Blood cultures are growing a gram-negative barbie. Urine culture is pending. ASSESSMENT AND PLAN: The patient has a bacteremia. It may well be with the same Klebsiella organism that he had when he was last in the hospital. An alternative explanation could be that the patient has an infiltrate that is pneumonia and the pneumonia then was the source of a bacteremia. The patient has an aortic aneurysm and also aortic valve replacements are at high risk for becoming infected from this patient's bacteremia. I think for now it is reasonable to continue meropenem in case the Klebsiella organism has not been eradicated. I think is reasonable to include ceftaroline because the patient may have pneumonia and it may be without Klebsiella and he could have a different organism causing his pneumonia such as methicillin-resistant Staphylococcus aureus. COMORBIDITIES: The patient is elderly. He has an abdominal aortic aneurysm, a malignant neoplasm of the prostate. The patient could have possible pneumonia. The patient also has an aortic valve. Both the aortic valve and the aortic aneurysm could be secondarily infected from the patient's bacteremia. cc: Sam Aguirre MD
[2019-06-02] MEDS ORDERED: SODIUM CHLORIDE 0.9% INJ SCH (17:30)
--- NOTE | 2019-06-02 17:59 | Diag Imaging Result Doc PS360 ---
EXAM: US ABDOMEN-COMPLETE HISTORY: sepsis, recurrent uti TECHNIQUE: Abdominal ultrasound COMPARISON: CT from 06/01/2019 FINDINGS: Normal pancreatic head and body. The tail is obscured. No aortic aneurysm. Normal inferior vena cava. No focal hepatic abnormality. There are multiple stones within the gallbladder. The common bile duct measures 4 mm. No ascites. Normal right kidney. No hydronephrosis. Normal spleen. Normal left kidney. No hydronephrosis. IMPRESSION: Cholelithiasis Electronically signed by Juan Ruano 06/02/2019 5:57 PM
[2019-06-02 19:04] LABS: ALBUMIN 2.4 g/dL (3.5-5.0); CREATININE 1.5 mg/dL (0.7-1.2); PHOSPHORUS 2.3 mg/dL (2.7-4.5); POTASSIUM 3.8 mmol/L (3.5-5.1)
[2019-06-02 19:20] LABS: CALCIUM 6.6 mg/dL (8.8-10.2)
--- NOTE | 2019-06-02 19:48 | PROGRESS NOTE ---
DATE: 06/02/2019 SUBJECTIVE: The patient is lethargic. He is difficult to arouse. OBJECTIVE: Vital Signs: Temperature 98.2 degrees, blood pressure 108/54, heart rate 73, respirations 18, O2 saturation 99% on 2 L nasal cannula. General: This is a chronically ill- appearing elderly male lying in bed in no acute distress. Head: Normocephalic atraumatic. Heart: S1, S2 normal. Regular rate and rhythm. Lungs: Coarse breath sounds bilaterally. Abdomen: Positive bowel sounds. Soft, nontender, nondistended. Extremities: 2+ edema in the lower extremities. Neurologic: The patient is lethargic. He does respond to painful stimuli. LABORATORY DATA: White blood cell count 39, hemoglobin 11, hematocrit 37, platelets 148,000, INR 2. ASSESSMENT AND PLAN: 1. Acute hypoxemic respiratory failure, likely secondary to pneumonia. Continue with supplemental oxygen, antibiotics and bronchodilator therapy. 2. Pneumonia. Blood cultures have been obtained. Sputum culture is currently pending. Continue with broad-spectrum antibiotics, supplemental oxygen and bronchodilator therapy. Pulmonary has been consulted. 3. Sepsis. We will attempt to wean the patient off of the Levophed. Continue with treatment for the underlying infection. 4. Acute kidney injury. Multifactorial. Continue with IV fluids. 5. Alzheimer's dementia. Aware. 6. Hypernatremia. We will adjust the patient's IV fluids. 7. Abdominal aortic aneurysm. Aware. 8. Atrial fibrillation. The patient is currently rate controlled. 9. Deep vein thrombosis prophylaxis. Continue on heparin. 10. Gastrointestinal prophylaxis. We will start the patient on IV Protonix. cc: Kristy Villalobos MD
--- NOTE | 2019-06-02 19:59 | CONSULTATION ---
DATE OF CONSULTATION: 06/02/2019 REQUESTING PROVIDER: Dr. Kristy Villalobos. REQUESTING PROVIDER: Dr. Mitch Dupont. REASON FOR CONSULTATION: Acute respiratory failure, septic. HISTORY OF PRESENT ILLNESS: This is an 83-year-old male with a medical history of atrial fibrillation, carotid arterial disease, vascular dementia, hypertension, abdominal aortic aneurysm, mitral and aortic valve insufficiency, chronic kidney disease, coronary artery disease prostate cancer, and hyperlipidemia. He presented via EMS from [facility] with lethargy, high temperature and low blood pressure. Per ER physician documentation, the patient apparently has been treated for urinary tract infection and bronchitis with IM Rocephin. His last admission to our facility was from 05/09/2019 to 05/22/2019 with sepsis secondary to ESBL positive Klebsiella pneumonia, bacteremia and urinary tract infection. Further workup in the ER revealed leukocytosis with white blood cell up to 29.24 and elevated plasma lactate up to 4.3, acute kidney injury and shock. He has been admitted to the ICU for further evaluation and management. The patient currently is lying in bed with no acute distress noted, but he is unresponsive to any verbal stimuli. He did withdraw his legs when I touched his feet. He will squeeze my hands spontaneously, but not follow my commands. His eyes remain closed. He is on meropenem and norepinephrine drips at this time. The urine in the bedside drainage bag is dark brown and cloudy. He did have a temperature up to 100.5 last night at 0000. There is no family at the bedside. All other information is collected from the E-chart. PAST MEDICAL HISTORY: 1. Atrial fibrillation, on chronic anticoagulation with Pradaxa. 2. Carotid artery disease. 3. Vascular dementia, advanced. 4. Hypertension. 5. Abdominal aortic aneurysm. 6. Mitral and aortic valve insufficiency. 7. Chronic kidney disease stage IIIa. 8. Coronary artery disease. 9. Prostate cancer. 10. Hyperlipidemia. 11. 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 12. History of intracardiac thrombosis. 13. History of transient ischemic attack. PAST SURGICAL HISTORY: 1. Elbow surgery. 2. Aortic valve replacement. SOCIAL HISTORY: Per H and P, patient lives in the [facility]. He is a former smoker. FAMILY HISTORY: Unknown. ALLERGIES: No known drug allergies. REVIEW OF SYSTEMS: Unable to be obtained. PHYSICAL EXAMINATION: Vital Signs: Temperature 98.3, blood pressure 123/69, pulse 72, respiratory rate 15, oxygen saturation 99% on nasal cannula at 2 L. General: The patient is lying in bed with his eyes closed. No acute distress noted. He is unresponsive to verbal stimuli. He did withdrawal his leg when touching his feet and he squeeze my hand spontaneously with his hands. The urine in the drainage bag by the bedside is dark brown and cloudy. HEENT: Atraumatic, normocephalic. Mucosa pink and slightly dry. Trachea midline. Respiratory: Even and unlabored. Symmetrical excursion. Auscultation revealed diminished breathing sounds bilaterally, otherwise clear. Cardiovascular: Irregularly irregular with a significant murmur noted. Gastrointestinal: Soft, nondistended. Normoactive bowel sounds in all 4 quadrants noted. Extremities: Bilateral lower extremity trace edema with right side slightly worse than the left side. Chronic discoloration on the bilateral lower legs. No cyanosis. No clubbing. Dorsalis pedis 2+ bilaterally. Neurologic: Lethargic. Unresponsive to verbal stimuli with withdrawal of his legs when I touch his feet, spontaneously squeezing my hand with his hands, but not follow any commands. LAB DATA: White blood cell 39.33, hemoglobin 11.9, hematocrit 37.3, platelet 148,000. PH 7.51, pCO2 24, PO2 181, HC03 23.1, base excess -2.3 and oxyhemoglobin 96.8. IMAGING DATA: CT thorax without contrast, CT abdomen and pelvis without contrast on 06/01/2019 revealed hazy central atelectasis versus atypical infiltrates in the lungs, borderline cardiomegaly, aneurysmal dilation of the ascending aorta, constipation with rectal stool impaction, gallbladder stones and small nonobstructive left renal stone. ASSESSMENT: This is an 83-year-old male with a medical history of atrial fibrillation, carotid artery disease, vascular dementia, hypertension, abdominal aortic aneurysm, mitral and aortic valve insufficiency, chronic kidney disease, coronary artery disease, prostate cancer, and hyperlipidemia. He has been admitted to the ICU since yesterday with metabolic encephalopathy, suspected urinary tract infection, acute hypoxic respiratory failure, shock and acute kidney injury. 1. Acute hypoxic respiratory failure. Currently, the patient is on nasal cannula at 2 L and he is tolerating very well. 2. Shock most likely secondary to sepsis. The patient is on norepinephrine drip currently. 3. Hazy central atelectasis versus atypical infiltrates in the lungs. 4. Acute kidney injury with suspected urinary tract infection. 5. Constipation with rectal stool impaction. 6. Do Not Resuscitate 1. PLAN: 1. Continue supplemental oxygen as needed. 2. Continue antibiotic and the pressors. 3. Follow up with CBC, CMP, sputum culture, urine culture and blood cultures. 4. Further recommendations pending hospital course. Thank you for the courtesy of this consult. Dictated by PAULO Moreno for Maddie Chen MD cc: PAULO Moreno MD [facility]
[2019-06-02] MEDS ORDERED: CALCIUM GLUCONATE 1 GM in NS 50 ML IV ONE (20:05)
[2019-06-02] MEDS: LIPITOR PO SCH (20:13)
[2019-06-02] MEDS: ARICEPT PO SCH (20:13)
[2019-06-02] MEDS: D5W 1,000 ML IV SCH (21:01)
[2019-06-03] MEDS: MERREM 500 MG in NS 50 ML IV SCH (03:10)
[2019-06-03 04:25] LABS: ALLEN TEST YES; BE -1.8 mmoll (-3.0-3.0); BLOOD TYPE ARTERIAL; HCO3-(ACT) 23.5 mmoll (20.0-26.0); METHB 1.3 % (0.0-1.5); O2(CT) 15.1 mL/dL (15.0-23.0); O2HB 96.2 % (95.0-99.0); PCO2(98.6) 31 mmHg (35-45); PO2(98.6) 87 mmHg (60-100); SAMPLE BLOOD; SAO2 99.1 % (95.0-100.0); THB 11.1 g/dL (11.5-17.4); pH(98.6) 7.45 (7.35-7.45)
[2019-06-03 04:31] LABS: MODALITY ROOM AIR
[2019-06-03 05:43] LABS: BASO# 0.03 X1000 (0.0-0.2); BASO% 0.1 % (0.0-0.8); EOS# 0.23 X1000 (0.0-0.7); EOS% 1.1 % (0.0-10.0); HEMATOCRIT 33.3 % (42.0-52.0); HEMOGLOBIN 10.5 g/dL (14.0-18.0); IMM GRAN# 0.08 X1000 (0.0-0.04); IMM GRAN% 0.4 % (0.0-0.5); LYMPH# 2.86 X1000 (1.2-3.4); LYMPH% 14.3 % (20.5-51.1); MCH 29.2 PG (27-31); MCHC 31.5 g/dL (33-37); MCV 92.5 FL (81-99); MONO# 1.57 X1000 (0.11-0.59); MONO% 7.8 % (1.7-9.3); MPV 11.5 FL (7.4-10.4); NEUT# 15.29 X1000 (1.4-6.5); NEUT% 76.3 % (42.2-75.2); PLT 110 X1000 (130-400); RDW 14.1 % (11.5-14.5); WBC 20.06 X1000 (4.8-10.8)
[2019-06-03 05:51] LABS: MAGNESIUM 1.8 mg/dL (1.5-2.7); PHOSPHORUS 1.7 mg/dL (2.7-4.5)
[2019-06-03 05:52] LABS: ALB/GLOB RATIO 0.6; ALBUMIN 1.9 g/dL (3.5-5.0); CALCIUM 7.1 mg/dL (8.8-10.2); CREATININE 1.3 mg/dL (0.7-1.2); POTASSIUM 3.4 mmol/L (3.5-5.1); TOTAL BILIRUBIN 0.38 mg/dL (0.20-1.00); TOTAL PROTEIN 5.2 g/dL (6.3-8.3)
[2019-06-03] MEDS: TEFLARO 400 MG in NS 250 ML IV SCH (05:59)
[2019-06-03] MEDS ORDERED: PROTONIX IV SCH (06:00)
[2019-06-03] MEDS: D5W 1,000 ML IV SCH (06:01)
[2019-06-03] MEDS ORDERED: POTASSIUM PHOSPHATE 40 MMOL in NS 250 ML IV ONE (06:05)
[2019-06-03 07:30] LABS: BANDS 4 % (0-1); LYMPHS 16 % (21-51); SEGS 80 % (42-75)
[2019-06-03] MEDS ORDERED: NS 50 ML ONE (07:51)
[2019-06-03] MEDS ORDERED: SOLU-CORTEF IV SCH (09:30)
--- NOTE | 2019-06-03 09:59 | INFECTIOUS DISEASE PROGRESS NO ---
DATE: 06/03/2019 Patient has a gram-negative barbie bacteremia which may have hematogenously infected his aortic valve and/or his abdominal aortic aneurysm. MEDICATIONS: The patient is on a combination of meropenem and ceftaroline. PHYSICAL EXAMINATION: Vital Signs: Temperature is 98.2 degrees, pulse 69, respirations 17, blood pressure 92/48. General: This is an ill-appearing elderly male. He is in no acute distress. Head/eyes/ears/nose/throat: He can hear my spoken words and see near objects. He does not have any white patches on his tongue. Neck: No pain with movement. Lungs: Clear to auscultation. Cardiovascular: Heart rate is irregular. Abdomen: Soft and nontender. Neurologic: The patient is awake. He can move his extremities. There is no tremor. LAB AND X-RAY: CT scan of the chest shows by basilar infiltrates. Blood cultures are growing a gram-negative barbie. Urine culture is negative[place] [id number], hemoglobin 10.5 and platelet count 110,000. Blood gases show a pH of 7.45, a PO2 of 87 and a pCO2 of 31. Creatinine is 1.3, GFR is 53. ASSESSMENT AND PLAN: The patient has a gram-negative barbie bacteremia which may have infected the patient's aortic valve and/or his aortic aneurysm. My plan for now will be to continue meropenem and treat the patient with an appropriate antibiotic for a total of 6 weeks because as mentioned above, the patient's aortic valve and/or aneurysm may have been infected hematogenously. Day 1 of treatment will be the first day that the patient's repeat blood cultures are sterile. Tomorrow I will repeat his blood cultures. COMORBIDITIES: The patient is elderly. He has an abdominal aortic aneurysm and a prosthetic aortic valve and prostate cancer. cc: Sam Aguirre MD
[2019-06-03] MEDS: HEPARIN SUBQ SCH (10:17)
[2019-06-03] MEDS: ASPIRIN EC PO SCH (10:17)
[2019-06-03] MEDS ORDERED: MERREM IV SCH (11:00)
[2019-06-03] MEDS ORDERED: NS IV SCH (11:00)
--- NOTE | 2019-06-03 20:23 | PROGRESS NOTE ---
DATE: 06/03/2019 SUBJECTIVE: The patient is resting comfortably. He does awaken when his family is at the bedside, but he remains confused. OBJECTIVE: Vital Signs: Temperature 98.6 degrees, blood pressure 101/65, heart rate 79, respirations 18, O2 saturation is 98% on 2 L nasal cannula. General: This is a chronically ill- appearing, elderly male, lying in bed in no acute distress. Heart: S1, S2 normal. Regular rate and rhythm. Lungs: Equal air entry bilaterally. Coarse breath sounds. Abdomen: Positive bowel sounds. Soft, nontender, nondistended. Extremities: Edema 1+ bilaterally. Neurologic: The patient is lethargic. LABORATORY: White blood cell count 20, hemoglobin 10, hematocrit 33, platelets 110,000. Sodium 149, potassium 3.4, chloride 120, CO2 of 21, BUN 30, creatinine 1.3, glucose 117, albumin 1.9. ASSESSMENT: 1. Acute hypoxemic respiratory failure. 2. Pneumonia. 3. Sepsis. 4. Acute kidney injury. 5. Alzheimer's dementia. 6. Hypernatremia. 7. Atrial fibrillation. 8. Anemia. 9. Leukocytosis. PLAN: I had a meeting with the family and Nola Vidal with Palliative Care was in attendance, and the family has decided to make the patient comfort measures only. The Levophed drip will be discontinued as well as all antibiotics. The patient will be started on morphine and Ativan for comfort and transferred to a private room on the medical floor. Palliative Care is following for discharge planning. cc: Kristy Villalobos MD [facility]
--- NOTE | 2019-06-05 03:54 | PROGRESS NOTE ---
DATE: 06/04/2019 SUBJECTIVE: The patient is resting comfortably. He is in no pain. No acute events noted overnight. OBJECTIVE: Vital Signs: Temperature 97.8 degrees, blood pressure 117/59, heart rate 80, respirations 15, O2 saturations 98% on room air. General: This is a chronically ill-appearing, elderly male, lying in bed in no acute distress. Heart: S1, S2 normal. Regular rate and rhythm. Lungs: Equal air entry bilaterally. Abdomen: Positive bowel sounds. Soft, nontender, nondistended. Extremities: No edema, no cyanosis. Neurologic: The patient is lethargic. ASSESSMENT: 1. Acute hypoxemic respiratory failure. 2. Pneumonia. 3. Sepsis. 4. Acute kidney injury. 5. Atrial fibrillation. 6. Alzheimer dementia. 7. Leukocytosis. 8. Anemia. PLAN: Continue with comfort measures. Palliative Care is following as well as [employer]. cc: Kristy Villalobos MD
--- NOTE | 2019-06-05 16:46 | PROGRESS NOTE ---
DATE: 06/05/2019 SUBJECTIVE: The patient is resting comfortably. No acute events noted overnight. OBJECTIVE: Vital Signs: Temperature 98 degrees, blood pressure 112/66, heart rate 90, respirations 12, O2 saturation 98% on room air. General: This is a chronically ill-appearing elderly male lying in bed in no acute distress. Heart: S1, S2 normal. Regular rate and rhythm. Lungs: Equal air entry bilaterally. No wheezing. No rales. No rhonchi. Abdomen: Positive bowel sounds. Soft, nontender, nondistended. Extremities: No edema, no cyanosis. Neurologic: The patient is lethargic. ASSESSMENT: 1. Acute hypoxemic respiratory failure. 2. Pneumonia. 3. Sepsis. 4. Bacteremia secondary to Klebsiella. 5. Acute kidney injury. 6. Atrial fibrillation. 7. Leukocytosis. 8. Alzheimer's dementia. PLAN: The patient is currently comfortable. Continue with comfort measures. cc: Kristy Villalobos MD
[2019-06-05] MEDS: MORPHINE IV PRN (19:48)
[2019-06-06] MEDS: MORPHINE IV PRN ×3 (00:09→16:08)
[2019-06-06] MEDS: TYLENOL PR PRN ×3 (00:10→12:14)
[2019-06-06] MEDS: ATIVAN IV PRN ×2 (12:16→16:08)
[2019-06-06] MEDS: ATROPINE 1 % OPHTH SOLN SL PRN (16:19)
--- NOTE | 2019-06-06 17:07 | PROGRESS NOTE ---
DATE: 06/06/2019 SUBJECTIVE: The patient is resting comfortably in bed. No acute events noted overnight. OBJECTIVE: Vital Signs: Temperature 100 degrees, blood pressure 74/56, heart rate 100, respirations 8, O2 saturation is 96% on room air. General: This is a chronically ill-appearing, elderly male, lying in bed in no acute distress. Heart: S1, S2 normal. Tachycardic. Lungs: Equal air entry bilaterally. No wheezing. No rales. No rhonchi. Abdomen: Positive bowel sounds. Soft, nontender, nondistended. Extremities: Trace pedal edema. Neurologic: The patient is comatose. ASSESSMENT: 1. Acute hypoxemic respiratory failure. 2. Sepsis secondary to Klebsiella bacteremia. 3. Pneumonia. 4. Acute kidney injury. 5. Atrial fibrillation. 6. Alzheimer's dementia. PLAN: Continue with comfort measures. cc: Kristy Villalobos MD
[2019-06-07] MEDS: TYLENOL PR PRN (00:51)
[2019-06-07] MEDS: ATIVAN IV PRN ×2 (11:25→16:09)
[2019-06-07] MEDS: MORPHINE IV PRN ×2 (16:09→23:41)
--- NOTE | 2019-06-07 17:13 | PROGRESS NOTE ---
DATE: 06/07/2019 SUBJECTIVE: The patient is resting comfortably. No acute events noted overnight. OBJECTIVE: Vital signs: Temperature 99 degrees, blood pressure 80/57, heart rate 109, respirations 22, O2 saturation 93% on room air. General: This is a chronically ill-appearing elderly male lying in bed in no acute distress. Heart: S1, S2 normal. Tachycardic. Lungs: Coarse breath sounds bilaterally. Abdomen: Hypoactive bowel sounds. Extremities: No edema, no cyanosis. Neurologic: The patient is comatose. DIAGNOSES: 1. Acute hypoxemic respiratory failure. 2. Sepsis secondary to Klebsiella bacteremia. 3. Pneumonia. 4. Acute kidney injury. 5. Alzheimer's dementia. 6. Atrial fibrillation. PLAN: Continue with comfort measures. cc: Kristy Villalobos MD
[2019-06-08] MEDS: MORPHINE IV PRN ×3 (05:23→13:56)
[2019-06-08] MEDS: TYLENOL PR PRN ×2 (05:23→17:32)
[2019-06-08] MEDS: ATROPINE 1 % OPHTH SOLN SL PRN (10:07)
--- NOTE | 2019-06-08 10:33 | PROGRESS NOTE ---
DATE: 06/08/2019 SUBJECTIVE: The patient is comatose. OBJECTIVE: General: This is a chronically ill-appearing, elderly male lying in bed in no acute distress. Heart: S1, S2 normal. Tachycardic. Lungs: Equal air entry bilaterally. Abdomen: Hypoactive bowel sounds. Extremities: Trace pedal edema. Neurologic: The patient is comatose. ASSESSMENT: 1. Acute hypoxemic respiratory failure. 2. Sepsis secondary to Klebsiella bacteremia. 3. Pneumonia. 4. Acute kidney injury. 5. Alzheimer's dementia. 6. Atrial fibrillation. PLAN: Continue with comfort measures. cc: Kristy Villalobos MD
[2019-06-08 18:26] VITALS: BP 76/54
--- NOTE | 2019-06-11 07:16 | DISCHARGE SUMMARY ---
ADMISSION DATE: 06/01/2019 DISCHARGE DATE: 06/08/2019 FINAL DISCHARGE DIAGNOSES: 1. Acute hypoxemic respiratory failure. 2. Pneumonia. 3. Sepsis. 4. Bacteremia secondary to Klebsiella. 5. Acute kidney injury. 6. Hyponatremia. 7. Alzheimer's dementia. 8. Abdominal aortic aneurysm. 9. Atrial fibrillation. CONSULTATIONS: 1. Pulmonary consultation with Dr. Chen. 2. ID consultation with Dr. Aguirre. HOSPITAL COURSE: Mr. Salgeuro is an 83-year-old male with a history of multiple medical problems, who was brought to the ER with a chief complaint of unresponsiveness. Upon arrival to the ER, the patient was noted to be septic. The patient was started on IV fluids, and blood and urine cultures were obtained, and the patient was started on broad-spectrum antibiotics and transferred to the ICU. Pulmonary Medicine was consulted for further assistance with management. ID was also consulted. The patient was treated with broad-spectrum antibiotics and fluids. Despite aggressive therapy, the patient's condition did not improve. This was discussed with the patient's family, who decided to make the patient comfort measures. The patient was transferred out of the ICU to the medical floor on comfort measures. On 06/08/2019 at 1840, the patient was pronounced . The patient's family was notified about the patient's . cc: Kristy Villalobos MD
== END 2019-06-08 18:40 | disposition expired | DRG 871 ==
LOC: P.ED 15:22 → SUATTDRO 19:53 → P.ICU 19:53 → 1N 06-03 15:06
PROVIDERS: ATTEND Internal Medicine